=== PATIENT | female | born 1995 | race Caucasian/White ===

== ENCOUNTER → 2017-05-07 | Outpatient (REF) | payer OTHER ==
[2017-05-07 14:33] LABS: ALBUMIN 3.6 GM/DL (3.2-5.2); ALBUMIN/GLOBULIN RATIO 1.09 (1.00-1.93); ALKALINE PHOSPHATASE 119 U/L (45-117); ALT/SGPT 31 U/L (12-78); ANION GAP 6 MEQ/L (8-16); AST/SGOT 15 U/L (15-37); BILIRUBIN,TOTAL 0.3 MG/DL (0.2-1.0); BLOOD UREA NITROGEN 11 MG/DL (7-18); CALCIUM LEVEL 8.8 MG/DL (8.5-10.1); CARBON DIOXIDE LEVEL 29 MEQ/L (21-32); CHLORIDE LEVEL 103 MEQ/L (98-107); CHOLESTEROL LEVEL 159 MG/DL (<200); CREATININE FOR GFR 0.72 MG/DL (0.55-1.02); GLOMERULAR FILTRATION RATE > 60.0 (>60); GLUCOSE, FASTING 93 MG/DL (70-105); POTASSIUM SERUM 4.5 MEQ/L (3.5-5.1); SODIUM LEVEL 138 MEQ/L (136-145); TOTAL PROTEIN 6.9 GM/DL (6.4-8.2); TRIGLYCERIDES LEVEL 102 MG/DL (<150)
== END ==
LOC: M LAB REF 12:23
PROVIDERS: ATTEND Family Medicine Addiction Medicine
DX: D22.9 Melanocytic nevi, unspecified (principal)

== ENCOUNTER → 2017-05-21 | Outpatient (REF) | payer OTHER | LOC: M LAB REF 16:37 | PROVIDERS: ATTEND Surgery | DX: D48.5 Neoplasm of uncertain behavior of skin (principal) ==

== ENCOUNTER → 2017-09-01 | Outpatient (CLI) | payer OTHER ==
[2017-09-03 11:22] LABS: HEPATITIS B SURFACE ANTIGEN NEGATIVE (NEGATIVE)
[2017-09-03 11:49] LABS: HEPATITIS C VIRUS ABY INDEX 0.3 INDEX (<0.8)
[2017-09-03 11:51] LABS: HIV 1&2 SCREEN CENTAUR NEGATIVE (NEGATIVE)
[2017-09-03 11:52] LABS: HEPATITIS A ANTIBODY IGM NEGATIVE (NEGATIVE)
[2017-09-03 12:29] LABS: HEPATITIS B CORE ANTIBODY IGM NEGATIVE (NEGATIVE)
== END ==
LOC: M SMT 14:58
DX: Z11.3 Encounter for screening for infections with a predominantly sexual mode of transmission (principal)
CPT/HCPCS: 87340

== ENCOUNTER → 2017-09-01 | Outpatient (REF) | payer OTHER ==
[2017-09-01 20:12] LABS: CHLAMYDIA DNA AMPLIFICATION NEGATIVE (NEGATIVE); GC DNA AMPLIFICATION NEGATIVE (NEGATIVE)
== END ==
LOC: M LAB REF 17:32
DX: Z11.3 Encounter for screening for infections with a predominantly sexual mode of transmission (principal)

== ENCOUNTER → 2017-09-28 | Outpatient (REF) | payer OTHER | LOC: M LAB REF 09:46 | DX: J02.9 Acute pharyngitis, unspecified (principal) | CPT/HCPCS: 87070 ==

== ENCOUNTER 2018-12-29 19:44 | Emergency (ER) | payer OTHER, SELFPAY ==
[~2018-12-29] VITALS: Ht 162.6 cm; Wt 117.3 kg
[2018-12-29 21:10] LABS: BASO % 0.3 % (0.0-1.0); EOS # 0.1 10^3/uL (0.0-0.50); HEMATOCRIT 43.1 % (36.0-47.0); HEMOGLOBIN 13.4 g/dl (12.0-15.5); LYMPH % 29.1 % (24.0-44.0); MEAN CORPUSCULAR HGB CONC 31.1 g/dl (32.0-36.5); MEAN CORPUSCULAR VOLUME 83.5 fl (80.0-96.0); MONO # 0.8 10^3/uL (0.0-0.8); MONO % 10.9 % (0.0-5.0); NEUTROPHILS % 58.3 % (36.0-66.0); PLATELET COUNT, AUTOMATED 315 10^3/uL (150-450); RED BLOOD COUNT 5.16 10^6/uL (4.00-5.40); WHITE BLOOD COUNT 6.9 10^3/uL (4.0-10.0)
[2018-12-29 21:32] LABS: ALBUMIN 3.6 GM/DL (3.2-5.2); ALT/SGPT 36 U/L (12-78); BILIRUBIN,DIRECT < 0.1 MG/DL (0.0-0.2); BILIRUBIN,TOTAL < 0.1 MG/DL (0.2-1.0); BLOOD UREA NITROGEN 10 MG/DL (7-18); CALCIUM LEVEL 8.6 MG/DL (8.5-10.1); CARBON DIOXIDE LEVEL 27 MEQ/L (21-32); CHLORIDE LEVEL 108 MEQ/L (98-107); CREATININE FOR GFR 0.76 MG/DL (0.55-1.30); GLOMERULAR FILTRATION RATE > 60.0 (>60); GLUCOSE, FASTING 88 MG/DL (70-100); LIPASE 101 U/L (73-393); POTASSIUM SERUM 3.8 MEQ/L (3.5-5.1); SODIUM LEVEL 143 MEQ/L (136-145); TOTAL PROTEIN 7.4 GM/DL (6.4-8.2)
[2018-12-29] MEDS ORDERED: CIPR-249 PO (22:44)
[2018-12-29] MEDS ORDERED: ZOFR4TAB16 PO (22:44)
[2018-12-29] MEDS ORDERED: DICYCLOMINE 10 MG CAP PO ONE (22:45)
[2018-12-29] MEDS ORDERED: CIPROFLOXACIN 500 MG TAB PO ONE (22:45)
[2018-12-29] MEDS ORDERED: ONDANSETRON 4 MG ORAL DISINTEGRATING TAB (Q0162 PER 1MG) PO ONE (22:45)
[2018-12-29] MEDS ORDERED: DICY1CAP8 PO (22:46)
[2018-12-29 23:39] VITALS: BP 123/71
== END 2018-12-29 23:40 | disposition home or self-care (01) ==
LOC: M ED 19:44
DX: R19.7 Diarrhea, unspecified (principal); R11.0 Nausea; R10.84 Generalized abdominal pain
CPT/HCPCS: 36415; 80048; 80076; 81001; 83690; 84702; 85025; 87507; 99284; Q0162

== ENCOUNTER 2019-09-09 00:06 | Emergency (ER) | payer OTHER, SELFPAY ==
[~2019-09-09] VITALS: Ht 162.6 cm; Wt 122.7 kg
[~2019-09-09 00:06] MED LIST: CIPR-249 PO; DICY1CAP8 PO; ZOFR4TAB16 PO
[2019-09-09] MEDS ORDERED: BENA25CA4 PO (00:11)
[2019-09-09] MEDS ORDERED: IBUP80TA PO (00:11)
[2019-09-09] MEDS ORDERED: AMOX500C PO (00:11)
[2019-09-09] MEDS ORDERED: methylPREDNISolone INJ 125 MG/2 ML VIAL (J2930) IV ONE (04:30)
[2019-09-09] MEDS ORDERED: diphenhydrAMINE INJ 50MG/ML VIAL (J1200) IV ONE (04:30)
[2019-09-09] MEDS ORDERED: FAMOTIDINE INJ 20MG/2ML VIAL (S0028) IVP ONE (04:30)
[2019-09-09 05:42] LABS: HEMATOCRIT 38.1 % (36.0-47.0); HEMOGLOBIN 11.9 g/dl (12.0-15.5); MEAN CORPUSCULAR HEMOGLOBIN 25.3 pg (27.0-33.0); MEAN CORPUSCULAR HGB CONC 31.2 g/dl (32.0-36.5); MEAN CORPUSCULAR VOLUME 81.1 fl (80.0-96.0); PLATELET COUNT, AUTOMATED 351 10^3/uL (150-450); WHITE BLOOD COUNT 10.2 10^3/uL (4.0-10.0)
[2019-09-09 06:04] LABS: BLOOD UREA NITROGEN 11 MG/DL (7-18); CALCIUM LEVEL 8.4 MG/DL (8.5-10.1); CARBON DIOXIDE LEVEL 27 MEQ/L (21-32); CHLORIDE LEVEL 106 MEQ/L (98-107); CREATININE FOR GFR 0.86 MG/DL (0.55-1.30); GLOMERULAR FILTRATION RATE > 60.0 (>60); GLUCOSE, FASTING 98 MG/DL (70-100); POTASSIUM SERUM 4.2 MEQ/L (3.5-5.1); SODIUM LEVEL 140 MEQ/L (136-145)
[2019-09-09] MEDS ORDERED: PRED20TA PO (06:40)
[2019-09-09 07:15] VITALS: BP 151/89
== END 2019-09-09 07:25 | disposition home or self-care (01) ==
LOC: M ED 00:06
DX: R21 Rash and other nonspecific skin eruption (principal); T78.49XA Other allergy, initial encounter; X58.XXXA Exposure to other specified factors, initial encounter; Y92.89 Other specified places as the place of occurrence of the external cause
CPT/HCPCS: 80048; 85027; 94760; 96374; 96375; 99284; J1200; J2930

== ENCOUNTER → 2020-04-27 | Outpatient (REF) | payer OTHER ==
[~2020-04-27] MED LIST changes: +AMOX500C PO; +BENA25CA4 PO; +IBUP80TA PO; +PRED20TA PO
== END ==
LOC: M LAB REF 15:52
PROVIDERS: ATTEND Physician Assistant
DX: J02.9 Acute pharyngitis, unspecified (principal)

== ENCOUNTER → 2020-05-08 | Outpatient (REF) | payer OTHER ==
[2020-05-08 17:02] LABS: BASO % 0.4 % (0.0-1.0); EOS # 0.5 10^3/uL (0.0-0.5); EOS % 5.1 % (0.0-3.0); HEMOGLOBIN 12.9 g/dl (12.0-15.5); LYMPH # 2.6 10^3/uL (1.5-5.0); LYMPH % 28.9 % (24.0-44.0); MEAN CORPUSCULAR HEMOGLOBIN 24.8 pg (27.0-33.0); MEAN CORPUSCULAR VOLUME 82.5 fl (80.0-96.0); MONO # 0.6 10^3/uL (0.0-0.8); MONO % 6.3 % (0.0-5.0); NEUTROPHILS # 5.3 10^3/uL (1.5-8.5); NEUTROPHILS % 58.6 % (36.0-66.0); PLATELET COUNT, AUTOMATED 380 10^3/uL (150-450); RED BLOOD COUNT 5.21 10^6/uL (4.00-5.40)
[2020-05-08 17:21] LABS: HEMOGLOBIN A1c 5.7 %
[2020-05-08 17:27] LABS: ALBUMIN 3.8 GM/DL (3.2-5.2); ALT/SGPT 20 U/L (12-78); BILIRUBIN,TOTAL 0.2 MG/DL (0.2-1.0); BLOOD UREA NITROGEN 10 MG/DL (7-18); CALCIUM LEVEL 8.8 MG/DL (8.5-10.1); CARBON DIOXIDE LEVEL 25 MEQ/L (21-32); CHLORIDE LEVEL 106 MEQ/L (98-107); CHOLESTEROL LEVEL 166 MG/DL (<200); CREATININE FOR GFR 0.75 MG/DL (0.55-1.30); GLOMERULAR FILTRATION RATE > 60.0 (>60); GLUCOSE, FASTING 95 MG/DL (70-100); HDL CHOLESTEROL 40 MG/DL (>40); LDL CHOLESTEROL 98 MG/DL (<100); NON-HDL-C 126 MG/DL; POTASSIUM SERUM 4.2 MEQ/L (3.5-5.1); SODIUM LEVEL 138 MEQ/L (136-145); TOTAL PROTEIN 7.3 GM/DL (6.4-8.2); TRIGLYCERIDES LEVEL 139 MG/DL (<150)
== END ==
LOC: M LAB REF 16:06
PROVIDERS: ATTEND Physician Assistant
DX: R53.83 Other fatigue (principal); N92.0 Excessive and frequent menstruation with regular cycle

== ENCOUNTER → 2020-08-29 | Outpatient (REF) | payer OTHER ==
[2020-08-29 14:26] LABS: MEAN CORPUSCULAR HEMOGLOBIN 25.1 pg (27.0-33.0); MEAN CORPUSCULAR HGB CONC 30.8 g/dl (32.0-36.5); MEAN CORPUSCULAR VOLUME 81.4 fl (80.0-96.0); PLATELET COUNT, AUTOMATED 276 10^3/uL (150-450); RED BLOOD COUNT 4.79 10^6/uL (4.00-5.40); WHITE BLOOD COUNT 10.9 10^3/uL (4.0-10.0)
[2020-08-29 14:50] LABS: GLUCOSE CHALLENGE TEST 1 HOUR 101 MG/DL (LESS THAN 140)
[2020-08-29 15:43] LABS: HEPATITIS C VIRUS ABY INDEX < 0.0 INDEX (<0.8)
[2020-08-29 15:44] LABS: HIV 1&2 SCREEN CENTAUR NEGATIVE (NEGATIVE)
[2020-08-29 16:05] LABS: CHLAMYDIA DNA AMPLIFICATION NEGATIVE (NEGATIVE); GC DNA AMPLIFICATION NEGATIVE (NEGATIVE)
== END ==
LOC: M PLALAB 09:03
PROVIDERS: ATTEND Advanced Practice Midwife
DX: O99.211 Obesity complicating pregnancy, first trimester (principal)

== ENCOUNTER → 2020-09-12 | Outpatient (REF) | payer OTHER | LOC: M PLALAB 12:06 | PROVIDERS: ATTEND Obstetrics & Gynecology | DX: Z34.91 Encounter for supervision of normal pregnancy, unspecified, first trimester (principal); Z3A.13 13 weeks gestation of pregnancy ==

== ENCOUNTER → 2020-09-14 | Outpatient (REF) | payer OTHER | LOC: M SFHCWAGY 13:23 | PROVIDERS: ATTEND Obstetrics & Gynecology | DX: Z3A.13 13 weeks gestation of pregnancy (principal) ==

== ENCOUNTER → 2020-10-11 | Outpatient (REF) | payer OTHER | LOC: M PLALAB 11:26 | PROVIDERS: ATTEND Obstetrics & Gynecology | DX: Z3A.17 17 weeks gestation of pregnancy (principal) ==

== ENCOUNTER → 2020-10-12 | Outpatient (REF) | payer OTHER | LOC: M SFHCWAGY 13:38 | PROVIDERS: ATTEND Obstetrics & Gynecology | DX: Z3A.17 17 weeks gestation of pregnancy (principal) ==

== ENCOUNTER → 2020-10-18 | Outpatient (CLI) | payer OTHER ==
--- NOTE | 2020-10-18 15:20 | REP ---
INDICATION: ANATOMY. COMPARISON: None. TECHNIQUE: Multiple sonographic images of the gravid uterus. FINDINGS: There is a single intrauterine gestation in a breech presentation. The placenta is anterior with grade 0 maturity. There is no previa. The umbilical cord inserts centrally onto the placenta. There is a three-vessel cord. heart rate is 134 beats per minute. Subjectively the amniotic fluid volume is normal. The composite ultrasound gestational age is 18 weeks 0 days with an CHEKO of 03/21/2021. The LMP is unknown. weight is 207 g/0 lb, 7 oz. This is the 18th percentile for 18 weeks 2 days. The following anatomic structures are satisfactorily demonstrated and are unremarkable: Cranium, cavum septum pellucidum, falx, cerebral ventricles, choroid plexus, cerebellum, cisterna magna, nuchal fold, facial profile, orbits, lungs, cardiac rhythm, cardiac right left ventricular outflow tracts, diaphragm, stomach, abdominal wall, right left kidneys, bladder, right and left upper extremities, right left lower extremities and 3 vessel cord. The following anatomic structures are suboptimally demonstrated: upper lip, four-chamber view of the heart and spine. A follow-up study dedicated to these structures and might be considered. Additionally, an echogenic focus is identified in the cardiac left ventricle. This is nonspecific but is usually artifact from the chorda tendineae. The examination is technically difficult because of early gestational age and maternal body habitus. IMPRESSION: dating and anatomy as discussed above. <Electronically signed by Carl Wiggins > 10/18/20 [id number]
== END ==
LOC: M WHC 12:40
PROVIDERS: ATTEND Obstetrics & Gynecology
DX: Z34.02 Encounter for supervision of normal first pregnancy, second trimester (principal); Z3A.18 18 weeks gestation of pregnancy

== ENCOUNTER → 2020-11-16 | Outpatient (REF) | payer OTHER ==
[2020-11-16 16:07] LABS: ALT/SGPT 12 U/L (12-78); BILIRUBIN,TOTAL < 0.1 MG/DL (0.2-1.0); CREATININE FOR GFR 0.53 MG/DL (0.55-1.30); GLOMERULAR FILTRATION RATE > 60.0 (>60); LDH LACTATE DEHYDROGENASE 148 U/L (84-246); URIC ACID 3.7 MG/DL (2.6-6.0)
[2020-11-16 19:48] LABS: TOTAL PROTEIN,RANDOM URINE 16.9 MG/DL (0.0-12.0)
== END ==
LOC: M PLALAB 12:33
PROVIDERS: ATTEND Obstetrics & Gynecology
DX: O16.9 Unspecified maternal hypertension, unspecified trimester (principal)

== ENCOUNTER 2020-11-27 19:03 | Outpatient (CLI) | payer OTHER ==
[~2020-11-27] VITALS: Ht 160 cm; Wt 123.6 kg
[2020-11-27] MEDS ORDERED: PREN29CH2 PO (19:18)
[2020-11-27 19:32] VITALS: BP 124/80
[2020-11-27] MEDS ORDERED: PERCOCET 5MG/325MG TAB PO ONE (20:10)
[2020-11-27 20:14] LABS: APPEARANCE, URINE HAZY (CLEAR); BACTERIA, URINE AUTO 1+ (NEGATIVE); BILIRUBIN, URINE AUTO NEGATIVE (NEGATIVE); BLOOD, URINE BLOOD NEGATIVE (NEGATIVE); CALCIUM OXALATE CRYSTALS MODERATE; COLOR, URINE YELLOW (YELLOW); GLUCOSE, URINE (UA) AUTO NEGATIVE (NEGATIVE); KETONE, URINE AUTO NEGATIVE (NEGATIVE); LEUKOCYTE ESTERASE, URINE AUTO NEGATIVE (NEGATIVE); MUCUS, URINE SMALL (NEGATIVE); NITRITE, URINE AUTO NEGATIVE (NEGATIVE); PROTEIN, URINE AUTO 1+ mg/dL (NEGATIVE); RBC, URINE AUTO 49 /HPF (0-3); SQUAMOUS EPITHELIAL CELL UR AU 6 /HPF (0-6); UROBILINOGEN, URINE AUTO 0.2 mg/dL (0.0-2.0); WBC, URINE AUTO 3 /HPF (0-3)
[2020-11-27 20:18] LABS: HEMATOCRIT 37.7 % (36.0-47.0); MEAN CORPUSCULAR HEMOGLOBIN 26.5 pg (27.0-33.0); MEAN CORPUSCULAR HGB CONC 31.8 g/dl (32.0-36.5); MEAN CORPUSCULAR VOLUME 83.2 fl (80.0-96.0); PLATELET COUNT, AUTOMATED 292 10^3/uL (150-450); RED BLOOD COUNT 4.53 10^6/uL (4.00-5.40); WHITE BLOOD COUNT 11.3 10^3/uL (4.0-10.0)
[2020-11-27] MEDS ORDERED: MORPHINE 4 MG/ML 1ML VIAL/SYRINGE (J2270) IV PRN (20:20)
[2020-11-27] MEDS ORDERED: PERCOCET 5MG/325MG TAB PO PRN (20:20)
[2020-11-27] MEDS ORDERED: LACTATED RINGER'S 1000 ML IV ONE (20:20)
[2020-11-27] MEDS ORDERED: ONDANSETRON 4MG/2ML VIAL IV PRN (20:30)
--- NOTE | 2020-11-27 20:40 | IPNPDOC ---
Text Note Date of Service The patient was seen on 11/27/20. NOTE Subjective: Ramesh is a 25-year-old female who is a at 24 weeks gestation with an CHEKO of 03/19/21 based off of her first trimester ultrasound. She initiated care in her first trimester at [facility]. Her has been complicated by CHTN, which she is not taking any medication for and morbid obesity. She presents to L&D with complaints of left sided pain that radiates to her back that started today and has gotten worse. Reports pain to be 5/10 and constant, deep, sharp and dull. She denies vaginal bleeding, contractions, or leaking of fluid. She reports active movement. She reports nausea and vomiting started after being in the department. Reports she is only urinating in very small amounts. MHx: CHTN, morbid obesity SHx: oral surgery FHx: bipolar, anxiety and depression Social history: denies being a smoker, denies alcohol or drug abuse. Denies history of STD. Objective: VS, labs, and ultrasound: see below. Ultrasound with minimal results per tech due to body habitus. Difficult to get images. FHR: 130-150 [place]: no contractions General: Alert and oriented. Appear to be uncomfortable (grimacing) Respiratory: regular rate and rhythm. No use of accessory muscles Abdomen: soft and not tender to touch. Musculoskeletal: +CVA tenderness left side. Assessment: IUP at 24 weeks, kidney stones Plan: Labs: UA, CMP, CBC ordered stat. Saline lock placed and LR 1 liter ordered to bolus now followed by 125 cc/hr Pain medication ordered: Percocet and morphine Renal ultrasound ordered Flomax ordered Zofran ordered. FHR Q4 hour. Continue to monitor urinary output. Continue to monitor and if pain improves tonight she can go home in the morning. VS,Fishbone, I+O VS, Fishbone, I+O Laboratory Tests 11/27/20 20:05 Vital Signs Date Time Temp Pulse Resp B/P (MAP) Pulse Ox O2 Delivery O2 Flow Rate FiO2 11/27/20 20:21 18 11/27/20 19:32 98.6 76 124/80 (95) 99 Room Air Item Value Date Time White Blood Count 11.3 10^3/uL H 11/27/202004 Red Blood Count 4.53 10^6/uL 11/27/202004 Hemoglobin 12.0 g/dl 11/27/202004 Hematocrit 37.7 % 11/27/202004 Mean Corpuscular Volume 83.2 fl 11/27/202004 Mean Corpuscular Hemoglobin 26.5 pg L 11/27/202004 Mean Corpuscular Hemoglobin Concent 31.8 g/dl L 11/27/202004 Red Cell Distribution Width 15.7 % H 11/27/202004 Platelet Count 292 10^3/uL 11/27/202004 Item Value Date Time Sodium Level 140 MEQ/L 11/27/202004 Potassium Level 3.9 MEQ/L 11/27/202004 Chloride Level 107 MEQ/L 11/27/202004 Carbon Dioxide Level 23 MEQ/L 11/27/202004 Anion Gap 10 MEQ/L 11/27/202004 Blood Urea Nitrogen 8 MG/DL 11/27/202004 Creatinine 0.58 MG/DL 11/27/202004 Glomerular Filtration Rate > 60.0 11/27/202004 Fasting Glucose 89 MG/DL 11/27/202004 Calcium Level 9.3 MG/DL 11/27/202004 Total Bilirubin 0.2 MG/DL 11/27/202004 Aspartate Amino Transf (AST/SGOT) 9 U/L 11/27/202004 Alanine Aminotransferase (ALT/SGPT) 12 U/L 11/27/202004 Alkaline Phosphatase 101 U/L 11/27/202004 Total Protein 5.8 GM/DL L 11/27/202004 Albumin 2.7 GM/DL L 11/27/202004 Albumin/Globulin Ratio 0.9 L 11/27/202004 Item Value Date Time Urine Color YELLOW 11/27/201955 Urine Appearance HAZY 11/27/201955 Urine Specific [place] 1.020 11/27/201955 Urine pH 6.0 UNITS 11/27/201955 Urine Protein 1+ mg/dL H 11/27/201955 Urine Glucose (Auto)(UA) NEGATIVE mg/dL 11/27/201955 Urine Ketones (Auto) NEGATIVE mg/dL 11/27/201955 Urine Blood NEGATIVE 11/27/201955 Urine Nitrite NEGATIVE 11/27/201955 Urine Bilirubin NEGATIVE 11/27/201955 Urine Urobilinogen 0.2 mg/dL 11/27/201955 Urine Leukocyte Esterase (Auto) NEGATIVE 11/27/201955 Urine WBC (Auto) 3 /HPF 11/27/201955 Urine RBC (Auto) 49 /HPF H 11/27/201955 Urine Hyaline Casts (Auto) 0 /LPF 11/27/201955 Urine Bacteria (Auto) 1+ H 11/27/201955 Urine Squamous Epithelial Cells 6 /HPF 11/27/201955 Urine Calcium Oxalate Cryst (Auto) MODERATE 11/27/201955 Urine Mucus (Auto) SMALL 11/27/201955 NAME: RAMESH GOMEZ DATE OF : 1995 BUSINESS NUMBER: [id number] AGE: 25 SEX: F REPORT #: [id number] ROOM: [facility] TECHNOLOGIST: [facility] DOCTOR: XOCHITL RODRIGUEZ CNM Ordered for Date&Time: 11/27/202015 cc: [~ rep ct ivnm] Service Date&Time: 11/27/202119 EXAMINATION REQUESTED: RENAL US REASON FOR PATIENT VISIT: CRAMPING REASON FOR EXAMINATION: left sided flank pain PROCEDURE INFORMATION: Exam: US Retroperitoneal Limited, Kidneys Exam date and time: 11/27/2020 9:20 PM Age: 25 years old Clinical indication: Abdominal pain; Flank; Left; ; Additional info: Left sided flank pain TECHNIQUE: Imaging protocol: Real-time ultrasound of the retroperitoneum with image documentation. Examination was focused on the kidneys. COMPARISON: No relevant prior studies available. FINDINGS: Right kidney: 10.4 cm in length. No stones. No hydronephrosis. Left kidney: 13.3 cm in length. No stones. No hydronephrosis. IMPRESSION: No acute sonographic findings. Electronically signed by: Polo Fan On 11/27/2020 22:22:50 PM XOCHITL RODRIGUEZ CNM November 27, 2020 20:40
[2020-11-27 20:47] LABS: ALBUMIN 2.7 GM/DL (3.2-5.2); ALT/SGPT 12 U/L (12-78); BILIRUBIN,TOTAL 0.2 MG/DL (0.2-1.0); BLOOD UREA NITROGEN 8 MG/DL (7-18); CALCIUM LEVEL 9.3 MG/DL (8.5-10.1); CARBON DIOXIDE LEVEL 23 MEQ/L (21-32); CHLORIDE LEVEL 107 MEQ/L (98-107); CREATININE FOR GFR 0.58 MG/DL (0.55-1.30); GLOMERULAR FILTRATION RATE > 60.0 (>60); GLUCOSE, FASTING 89 MG/DL (70-100); POTASSIUM SERUM 3.9 MEQ/L (3.5-5.1); SODIUM LEVEL 140 MEQ/L (136-145); TOTAL PROTEIN 5.8 GM/DL (6.4-8.2)
[2020-11-27] MEDS ORDERED: TAMSULOSIN 0.4 MG CAP PO SCH (21:00)
[2020-11-27 21:36] VITALS: BP 132/60
--- NOTE | 2020-11-27 22:23 | REPVR ---
PROCEDURE INFORMATION: Exam: US Retroperitoneal Limited, Kidneys Exam date and time: 11/27/2020 9:20 PM Age: 25 years old Clinical indication: Abdominal pain; Flank; Left; ; Additional info: Left sided flank pain TECHNIQUE: Imaging protocol: Real-time ultrasound of the retroperitoneum with image documentation. Examination was focused on the kidneys. COMPARISON: No relevant prior studies available. FINDINGS: Right kidney: 10.4 cm in length. No stones. No hydronephrosis. Left kidney: 13.3 cm in length. No stones. No hydronephrosis. IMPRESSION: No acute sonographic findings. Electronically signed by: Polo Fan On 11/27/2020 22:22:50 PM
[2020-11-27 22:29] VITALS: BP 107/68
[2020-11-27] MEDS: LR 1,000 ML IV SCH (22:32)
[2020-11-28 00:12] VITALS: BP 128/77
[2020-11-28 01:51] VITALS: BP 114/53
[2020-11-28 04:13] VITALS: BP 139/85
[2020-11-28] MEDS: LR 1,000 ML IV SCH (05:46)
[2020-11-28 06:04] VITALS: BP 123/70
== END 2020-11-28 11:15 | disposition home or self-care (01) ==
LOC: M LDO 19:03
PROVIDERS: ATTEND Advanced Practice Midwife
DX: O26.892 Other specified pregnancy related conditions, second trimester (principal); R10.9 Unspecified abdominal pain
CPT/HCPCS: 36415; 76775; 80053; 81001; 85027; 96374; 96375; J2270; J2405

== ENCOUNTER 2020-11-30 13:33 | Outpatient (CLI) | payer OTHER ==
[~2020-11-30] VITALS: Ht 160 cm; Wt 124.9 kg
[~2020-11-30 13:33] MED LIST changes: -ACET325C5 PO
[2020-11-30 13:56] VITALS: BP 146/72
[2020-11-30] MEDS ORDERED: ACET325C5 PO (14:03)
[2020-11-30 14:14] VITALS: BP 141/84
--- NOTE | 2020-11-30 15:14 | REP ---
INDICATION: IUGR, oligohydramnios 24 weeks, need cord dopplers only. COMPARISON: 11/30/2020. TECHNIQUE: Real-time sonographic evaluation of gravid uterus performed. FINDINGS: There is a single living intrauterine gestation. The estimated gestational age is reportedly 24 weeks 3 days, EDC 03/19/2021. position is breech. Placenta is on the left, grade 1 with no previa. heart rate 139 beats per minute. Subjectively the amniotic fluid is decreased. DEVAN is 6.3, normal range 9.8-22.0. Biophysical profile score 8/8. SD ratio umbilical artery 2.55, normal 2.38-4.94. RI 0.61, normal 0.59-0.82. Cervix is closed and measures 4.7 centimeters in length. IMPRESSION: [id number] decreased amniotic fluid volume. Biophysical profile score 8/8. <Electronically signed by Carl Le > 11/30/20 1843
[2020-11-30 15:17] VITALS: BP 149/90
[2020-11-30] MEDS ORDERED: BETAMETHASONE SOLUSPAN 6MG/ML 5ML VIAL (J0702 PER 3MG) IM ONE (16:05)
[2020-11-30 16:42] VITALS: BP 171/82
[2020-11-30 16:45] VITALS: BP 136/67
--- NOTE | 2020-11-30 17:20 | IPNPDOC ---
Text Note Date of Service The patient was seen on 11/30/20. NOTE Triage note 25 yo at 24 3/7 weeks by 9 week ultrasound (EDC=03/19/2021) presents from the office after an ultrasound showed oligohydramnios (DEVAN=2.8) and well as intrauterine growth restriction. She has no symptoms today at all. No pain. O: YO=268/72 NAD Abd: NT, gravid fundal height =20 cm FHT: category one ext: NT Ultrasound: CNJ=126 grams (<3%), Normal S/D cord ratio A/P 25 yo G1 at 24 3/7 weeks with IUGR,Oligohydramnios Start BMZ series today; return tomorrow for repeat dose Check TORCH labs as cause follow BP for possible preeclampsia refer to PNC at [facility] due to possibility of early delivery Arrange to have NIPT genetic screen done Weekly cord doppler/DEVAN/BPP, and weekly office visits VS,Fishbone, I+O VS, Fishbone, I+O Vital Signs Date Time Temp Pulse Resp B/P (MAP) Pulse Ox O2 Delivery O2 Flow Rate FiO2 11/30/20 16:45 98.0 20 20 136/67 (90) VICKIE JAIN MD November 30, 2020 17:19
[2020-12-02 20:13] LABS: CYTOMEGALOVIRUS IgG ANTIBODY <0.60 U/mL (0.00-0.59); CYTOMEGALOVIRUS IgM ANTIBODY <30.0 AU/mL (0.0-29.9); HSV IgM TYPES 1&2 <0.91 Ratio (0.00-0.90); TOXOPLASMA IgG ABY <3.0 IU/mL (0.0-7.1)
== END 2020-11-30 16:58 | disposition home or self-care (01) ==
LOC: M LDO 13:33
PROVIDERS: ATTEND Specialist
DX: O41.02X0 Oligohydramnios, second trimester, not applicable or unspecified (principal); Z3A.24 24 weeks gestation of pregnancy; O36.5920 Maternal care for other known or suspected poor fetal growth, second trimester, not applicable or unspecified; O99.212 Obesity complicating pregnancy, second trimester; E66.9 Obesity, unspecified; Z88.1 Allergy status to other antibiotic agents
CPT/HCPCS: 36415; 76815; 76820; 86644; 86645; 86694; 86777; 86778; 96372; J0702

== ENCOUNTER → 2020-11-30 | Outpatient (CLI) | payer OTHER ==
[~2020-11-30] MED LIST changes: +ACET325C5 PO; +PREN29CH2 PO
--- NOTE | 2020-11-30 13:58 | REP ---
INDICATION: F/U ANATOMY. COMPARISON: 10/18/2020. TECHNIQUE: Real-time sonographic evaluation of the gravid uterus performed. FINDINGS: Estimated gestational age is24 weeks 3 days, EDC 03/19/2021. Today's measurements indicate less than expected growth. Presentation: Breech Placenta anterior, grade 2, without evidence of placenta previa. heart rate is recorded at 152 beats per minute. Amniotic fluid is subjectively oligohydramnios. DEVAN 2.8, normal range 9.8-22.0. Biophysical profile score 8/8. Closed cervical length is measured at 4.0 cm. Biometry chart: BPD: 55 mm, 22 weeks 5 days, 5 less than 5th percentile. HC: 215 mm, 23 weeks 84 days, 24th percentile AC: 173 mm, 22 weeks 2 days, less than 5th percentile Femur length: 39 mm, 22 weeks 3 days, less than 5th percentile HC to AC ratio: 1.24, normal range 1.02-1.21. Estimated weight: 08/01/2006g, less than 3rd percentile. anatomy: Cranium: Grossly normal Lateral Ventricles/Choroid Plexus: Grossly normal Posterior Fossa/Cerebellum: Grossly normal Nose/lips/profile: Not well seen due to position. Four chamber heart: Not well seen due to position. Previously seen. Right ventricular outflow tract: Not well seen due to position. Previously seen. Left ventricular outflow tract: Not well seen due to position. Previously seen. Left-sided stomach: Grossly normal Kidneys: Grossly normal Bladder: Grossly normal Cord Insertion: Not well seen due to position. Previously seen. 3 vessel cord: Grossly normal Spine: Not well seen due to position. IMPRESSION: Viable single intrauterine gestation as above. Oligohydramnios. Less than expected growth, estimated weight is less than 3rd percentile. Biophysical profile score 8/8. Limited evaluation of anatomy. <Electronically signed by Carl Le > 11/30/20 [id number]
== END ==
LOC: M WHC 12:19
PROVIDERS: ATTEND Obstetrics & Gynecology
DX: O99.212 Obesity complicating pregnancy, second trimester (principal); O41.02X1 Oligohydramnios, second trimester, fetus 1; Z3A.24 24 weeks gestation of pregnancy

== ENCOUNTER 2020-12-01 16:16 | Outpatient (CLI) | payer OTHER ==
[~2020-12-01] VITALS: Ht 160 cm; Wt 124.9 kg
[~2020-12-01 16:16] MED LIST changes: +ACET325C5 PO
[2020-12-01 16:40] VITALS: BP 132/63
[2020-12-01] MEDS ORDERED: BETAMETHASONE SOLUSPAN 6MG/ML 5ML VIAL (J0702 PER 3MG) IM ONE (17:00)
--- NOTE | 2020-12-01 17:18 | IPNPDOC ---
Text Note Date of Service The patient was seen on 12/01/20. NOTE Outpatient 25yo G1 CHEKO 03/19/2021. Presents @ 24w4d for beta #2. History is significant for chronic HTN, IUGR and oligohydramnios Cat I tracing today. Normotensive Discharged home. Keep appt next week. Reviewed s/s to report, symptoms of elevated blood pressure, decreased movement. VS,Fishbone, I+O VS, Fishbone, I+O Vital Signs Date Time Temp Pulse Resp B/P (MAP) Pulse Ox O2 Delivery O2 Flow Rate FiO2 12/01/20 16:40 99.2 83 18 132/63 (86) Alis Whalen CNM December 01, 2020 17:18
== END 2020-12-01 17:12 | disposition home or self-care (01) ==
LOC: M LDO 16:16
PROVIDERS: ATTEND Advanced Practice Midwife
DX: O41.02X0 Oligohydramnios, second trimester, not applicable or unspecified (principal); Z3A.24 24 weeks gestation of pregnancy; O10.012 Pre-existing essential hypertension complicating pregnancy, second trimester; O36.8120 Decreased fetal movements, second trimester, not applicable or unspecified; Z88.1 Allergy status to other antibiotic agents
CPT/HCPCS: 96372; J0702

== ENCOUNTER → 2020-12-08 | Outpatient (CLI) | payer OTHER | LOC: M PLALAB 15:16 | PROVIDERS: ATTEND Advanced Practice Midwife | DX: O28.3 Abnormal ultrasonic finding on antenatal screening of mother (principal); O09.892 Supervision of other high risk pregnancies, second trimester ==

== ENCOUNTER → 2020-12-13 | Outpatient (CLI) | payer OTHER ==
[~2020-12-13] MED LIST changes: +LABE200T32 PO
--- NOTE | 2020-12-14 07:44 | REP ---
INDICATION: BPP/CORD DOPPLERS COMPARISON: 11/30/2020 TECHNIQUE: Transabdominal obstetrical ultrasound with color Doppler evaluation. FINDINGS: Examination demonstrates a single live intrauterine in cephalic presentation. motion is identified by technologist. Heterogeneous placenta is noted anterior/left lateral and grade 1 without evidence for placenta previa or abruption. Amniotic fluid volume is normal. Cervix measures 3.3 cm in length and appears closed.. Gestational age by 1st U/S 26 weeks 2 days with CHEKO 03/19/2021. DEVAN: 7.1 cm (9.6-22.4) Biophysical profile score: 8/8 Umbilical artery SD ratio: 2.91, 2.74 (2.22-4.61) IMPRESSION: 1. Single live intrauterine in cephalic presentation. 2. Biophysical profile score is normal. 3. Amniotic fluid volume is below normal range suggesting oligohydramnios. <Electronically signed by Michel Geiger > 12/14/20 [id number]
== END ==
LOC: M WHC 10:29
PROVIDERS: ATTEND Advanced Practice Midwife
DX: Z36.4 Encounter for antenatal screening for fetal growth retardation (principal); O36.5920 Maternal care for other known or suspected poor fetal growth, second trimester, not applicable or unspecified; Z3A.26 26 weeks gestation of pregnancy

== ENCOUNTER 2020-12-14 10:44 | Outpatient (CLI) | payer OTHER ==
[~2020-12-14] VITALS: Ht 160 cm; Wt 124.8 kg
[~2020-12-14 10:44] MED LIST changes: -LABE200T32 PO
[2020-12-14 11:07] VITALS: BP 169/111
[2020-12-14 11:19] VITALS: BP 156/95
[2020-12-14] MEDS ORDERED: NIFEdipine 10 MG CAP PO ONE (11:20)
[2020-12-14] MEDS ORDERED: ACETAMINOPHEN 500 MG TAB PO PRN (11:20)
[2020-12-14 11:55] LABS: HEMATOCRIT 38.2 % (36.0-47.0); HEMOGLOBIN 11.8 g/dl (12.0-15.5); MEAN CORPUSCULAR HEMOGLOBIN 26.3 pg (27.0-33.0); MEAN CORPUSCULAR HGB CONC 30.9 g/dl (32.0-36.5); MEAN CORPUSCULAR VOLUME 85.3 fl (80.0-96.0); PLATELET COUNT, AUTOMATED 309 10^3/uL (150-450); RED BLOOD COUNT 4.48 10^6/uL (4.00-5.40); WHITE BLOOD COUNT 13.6 10^3/uL (4.0-10.0)
[2020-12-14 12:29] VITALS: BP 140/87
[2020-12-14 12:29] LABS: ALBUMIN 2.7 GM/DL (3.2-5.2); ALT/SGPT 14 U/L (12-78); BILIRUBIN,TOTAL 0.2 MG/DL (0.2-1.0); BLOOD UREA NITROGEN 12 MG/DL (7-18); CARBON DIOXIDE LEVEL 25 MEQ/L (21-32); CHLORIDE LEVEL 106 MEQ/L (98-107); CREATININE FOR GFR 0.55 MG/DL (0.55-1.30); GLOMERULAR FILTRATION RATE > 60.0 (>60); GLUCOSE, FASTING 98 MG/DL (70-100); POTASSIUM SERUM 4.2 MEQ/L (3.5-5.1); SODIUM LEVEL 138 MEQ/L (136-145); TOTAL PROTEIN 6.3 GM/DL (6.4-8.2)
--- NOTE | 2020-12-14 12:57 | REP ---
INDICATION: iugr chtn oligohydramnios BPP and GROWTH. COMPARISON: Multiple TECHNIQUE: Transabdominal FINDINGS: Multiple ultrasonographic images of the gravid uterus shows a single living intrauterine gestation in the cephalic presentation. Doppler interrogation of the heart shows a heart rate of 147 beats per minute. The subjective amniotic fluid volume is is within normal limits. The calculated amniotic fluid index is 10.0 within expected range 9.6 to 22.4. Doppler interrogation of the umbilical artery shows an AB ratio of 2.41. This is within the normal range. The cervix measures 3 cm in length and is closed. biophysical profile score is 2 for breathing 2 for movement 2 for tone and 2 for amniotic fluid volume giving a sum total of 8/8. BPD: 6.6 cm 26 weeks 4 days HC: 23.6 cm 25 weeks 4 days AC: 19.9 cm 24 weeks 4 days FL: 4.5 cm 24 weeks 6 days The estimated weight is 746 g which is at the 28th percentile for a 26 week 3 day gestational age. Four-chamber heart, upper lip, and spine remain suboptimally visualized although reported as previously seen my review of those images from those prior exams in my view remains suboptimal. IMPRESSION: Single living intrauterine gestation as described above with an estimated gestational age of 23 weeks 1 day via composite criteria and an estimated date of delivery of 04/11/2021 based on today's exam. No anomalies were detected, however, upper lip, four-chamber heart view, and spine remain suboptimally visualized. Additional follow-up is warranted. <Electronically signed by Frank Anderson > 12/14/20 [id number]
[2020-12-14 13:17] LABS: CREATININE,RANDOM URINE 75.6 MG/DL; TOTAL PROTEIN,RANDOM URINE 24.8 MG/DL (0.0-12.0)
[2020-12-14] MEDS ORDERED: LABE200T32 PO (13:50)
--- NOTE | 2020-12-14 14:35 | IPNPDOC ---
Text Note Date of Service The patient was seen on 12/14/20. NOTE Triage Note Wendy is a 25yo with SIUP at 26w3d presenting to L&D triage from clinic for evaluation of her bp's and [place]. She notes not having hydrated well so far today. BP in clinic was 160/100 then 158/90. No regular/painful ctx. Good movement. No VB or LOF. No vision changes or RUQ pain. Her PMhx/PNC is significant for: CHTN with baseline urine prot:creat 0.16. Morbid obesity, starting BMI 48 with normal early 1hr glucola. Recent dx of IUGR and oligohydramnios on 11/30 with referral to PNC (appt 12/20) and increased monitoring with weekly BPPs. She is steroid complete as of 12/01/20. Vitals: initial bp severe range but mild range after receiving a PO dose of 10mg nifedipine General: WDWN, resting comfortably in bed Abdomen: soft, obese, gravid Labs: H/H 11.8/38.2, plt 309 creat 0.55, LFTs wnl urine prot:creat 0.328. (Starting urine prot:creat was 0.16 so this is a doubling). Imaging: BPP and GS today- BPP 8/8, growth 28%ile (but note made that upper lip, heart and spine view remain suboptimal). DEVAN 10cm. Assessment: Wendy is a 25yo with SIUP at 26w3d with new diagnosis of CHTN with super- imposed pre-eclampsia withOUT severe features based on doubling of urine prot:creat to 0.328 from baseline 0.16. Headache was effectively treated in tr iage with tylenol and she endorsed complete resolution. Mild range bp's after PO nifedipine. Reassuring status (11/30 u/s diagnosed IUGR with oligo but today EFW 28%ile with 10cm DEVAN). Beta complete as of 12/01. Plan: -safe for discharge home with bp check in clinic tomorrow -discussed with patient results of labs, imaging, and new dx of pre-eclampsia. discussed IOL by 37wk. Keep 20 December appt at [facility]. Weekly BPPs. -will initiate PO labetalol 200mg BID, patient instructed to take first dose be fore bed tonight -discussed return precautions at length Anna Schmitt MD VS,Hetal, I+O VS, Hetal I+O Laboratory Tests 12/14/20 11:17 Vital Signs Date Time Temp Pulse Resp B/P (MAP) Pulse Ox O2 Delivery O2 Flow Rate FiO2 12/14/20 12:29 108 140/87 (104) 12/14/20 11:07 98.2 18 Anna Schmitt MD December 14, 2020 14:35
== END 2020-12-14 14:00 | disposition home or self-care (01) ==
LOC: M LDO 10:44
PROVIDERS: ATTEND Obstetrics & Gynecology
DX: O11.2 Pre-existing hypertension with pre-eclampsia, second trimester (principal); Z3A.26 26 weeks gestation of pregnancy; O99.212 Obesity complicating pregnancy, second trimester; E66.9 Obesity, unspecified; Z68.42 Body mass index [BMI] 45.0-49.9, adult; O36.5920 Maternal care for other known or suspected poor fetal growth, second trimester, not applicable or unspecified; O41.02X0 Oligohydramnios, second trimester, not applicable or unspecified

== ENCOUNTER → 2020-12-19 | Outpatient (CLI) | payer OTHER ==
[~2020-12-19] MED LIST changes: +LABE200T32 PO
--- NOTE | 2020-12-19 11:02 | REP ---
INDICATION: IUGR,GROWTH,BPP W/CORD DOPPLERS COMPARISON: 12/13/2020 TECHNIQUE: Transabdominal obstetrical ultrasound with color Doppler evaluation. FINDINGS: Examination demonstrates a single live intrauterine in cephalic presentation. motion is identified by technologist. Placenta is noted anterior and grade 1 without evidence for placenta previa or abruption. Amniotic fluid volume is normal. Cervix measures 3.8 cm in length and appears closed.. Gestational age by LMP 27 weeks 1 day with CHEKO 03/19/2021. FHR equals 138 beats per minute. DEVAN: 8.3 cm (9.5-22.6) Biophysical profile score: 8/8 Anatomical assessment demonstrates normal structures including four-chamber heart/cardiac ventricular outflow tracts, and nose/lips. Echogenic focus in the left cardiac ventricle again noted and likely prominent chordae tendineae. IMPRESSION: Single live intrauterine in cephalic presentation. Biophysical profile score normal. Amniotic fluid volume is below normal suggesting polyhydramnios. <Electronically signed by Michel Geiger > 12/19/20 [id number]
== END ==
LOC: M WHC 09:53
PROVIDERS: ATTEND Advanced Practice Midwife
DX: O36.5920 Maternal care for other known or suspected poor fetal growth, second trimester, not applicable or unspecified (principal); O28.3 Abnormal ultrasonic finding on antenatal screening of mother

== ENCOUNTER → 2020-12-26 | Outpatient (REF) | payer OTHER ==
[2020-12-26 15:18] LABS: HEMATOCRIT 36.4 % (36.0-47.0); HEMOGLOBIN 11.4 g/dl (12.0-15.5); MEAN CORPUSCULAR HGB CONC 31.3 g/dl (32.0-36.5); MEAN CORPUSCULAR VOLUME 86.3 fl (80.0-96.0); PLATELET COUNT, AUTOMATED 281 10^3/uL (150-450); RED BLOOD COUNT 4.22 10^6/uL (4.00-5.40); WHITE BLOOD COUNT 8.8 10^3/uL (4.0-10.0)
== END ==
LOC: M PLALAB 12:39
PROVIDERS: ATTEND Advanced Practice Midwife
DX: O36.5920 Maternal care for other known or suspected poor fetal growth, second trimester, not applicable or unspecified (principal)
CPT/HCPCS: 36415; 82950; 85027; 86850; 86900; 86901; J2790

== ENCOUNTER → 2020-12-28 | Outpatient (CLI) | payer OTHER ==
--- NOTE | 2020-12-28 13:51 | REP ---
INDICATION: IUGR, OLIGO COMPARISON: 12/19/2020 TECHNIQUE: Transabdominal obstetrical ultrasound with color Doppler evaluation. FINDINGS: Examination demonstrates a single live intrauterine in cephalic presentation. motion is identified by technologist. Placenta is noted anterior/left lateral and grade 1 without evidence for placenta previa or abruption. Amniotic fluid volume is decreased. Cervix measures 2.9 cm in length and appears closed. There is no evidence for funneling. Gestational age by LMP and 1st U/S 28 weeks 3 days with CHEKO 03/19/2021. FHR equals 153 beats per minute. DEVAN: 7.2 cm (9.3-22.9) Biophysical profile score: 8/8 Umbilical artery SD ratio: 4.35 (2.07-4.30) IMPRESSION: Single live gestation in cephalic presentation. Oligohydramnios again noted. Biophysical profile score: 8/8. <Electronically signed by Michel Geiger > 12/28/20 [id number]
== END ==
LOC: M RAD 12:59
PROVIDERS: ATTEND Advanced Practice Midwife
DX: O10.919 Unspecified pre-existing hypertension complicating pregnancy, unspecified trimester (principal); O41.00X0 Oligohydramnios, unspecified trimester, not applicable or unspecified; Z3A.28 28 weeks gestation of pregnancy

== ENCOUNTER → 2020-12-29 | Outpatient (CLI) | payer OTHER ==
--- NOTE | 2020-12-29 14:37 | REP ---
INDICATION: IUGR,BPP W/CORD DOPPLERS. COMPARISON: 12/28/2020. TECHNIQUE: Real-time sonographic evaluation of gravid uterus performed. FINDINGS: There is a single living intrauterine gestation, estimated gestational age is reportedly 20 weeks 4 days, EDC 03/19/2021. position cephalic. Placenta anterior and grade 2. There is no previa. heart rate 150 beats per minute. Amniotic fluid within normal limits. DEVAN 12.0, normal range 9.3-23.0. Biophysical profile score 8/8. SD ratio umbilical artery 3.28, normal range 2.05-4.28. RI 0.70, normal range 0.54-0.77. IMPRESSION: Biophysical profile score 8/8. <Electronically signed by Carl Le > 12/29/20 [id number]
== END ==
LOC: M WHC 13:28
PROVIDERS: ATTEND Advanced Practice Midwife
DX: O10.919 Unspecified pre-existing hypertension complicating pregnancy, unspecified trimester (principal); Z3A.20 20 weeks gestation of pregnancy

== ENCOUNTER → 2021-01-04 | Outpatient (CLI) | payer OTHER ==
--- NOTE | 2021-01-04 10:55 | REP ---
INDICATION: GROWTH/BPP/CORD DOPPLERS COMPARISON: None. TECHNIQUE: Transabdominal obstetrical ultrasound with color Doppler evaluation. FINDINGS: Examination demonstrates a single live intrauterine in cephalic presentation. motion is identified by technologist. Placenta is noted anterior/left lateral and grade 1 without evidence for placenta previa or abruption. Amniotic fluid volume is normal. Cervix measures 3.7 cm in length and appears closed.. Selected gestational age: 29 weeks 3 days with CHEKO 03/19/2021. Gestational age by current measurements 29 weeks 3 days with CHEKO 03/19/2021. FHR equals 138 beats per minute. BPD: 7.7 cm at 31 weeks 0 days HC: 27.0 cm at 29 weeks 3 days AC: 24.1 cm at 28 weeks 2 days FL: 5.6 cm at 29 weeks 2 days HL: 4.9 cm at 29 weeks 0 days HC/AC: 1.12 Estimated weight 1309 grams (23rdpercentile). DEVAN: 8.9 cm (9.1-23.2) Biophysical profile score: 8/8 Umbilical artery SD ratio: 2.11, 1.93 (2.00-4.17) IMPRESSION: 1. Single live intrauterine in cephalic presentation demonstrating appropriate estimated weight and interval growth. 2. Amniotic fluid volume is below normal range. 3. Biophysical profile score normal. <Electronically signed by Michel Geiger > 01/04/21 1327
== END ==
LOC: M WHC 09:50
PROVIDERS: ATTEND Advanced Practice Midwife
DX: Z36.2 Encounter for other antenatal screening follow-up (principal); O36.5920 Maternal care for other known or suspected poor fetal growth, second trimester, not applicable or unspecified; O41.03X0 Oligohydramnios, third trimester, not applicable or unspecified; Z3A.29 29 weeks gestation of pregnancy

== ENCOUNTER → 2021-01-10 | Outpatient (CLI) | payer OTHER ==
--- NOTE | 2021-01-10 15:58 | REP ---
INDICATION: BPP/CORD DOPPLER. COMPARISON: None. TECHNIQUE: Transabdominal scanning. FINDINGS: Multiple ultrasonographic images shows a single living intrauterine gestation in the cephalic presentation. Doppler interrogation of the heart shows a heart rate of 161 beats per minute. The subjective amniotic fluid volume is within normal limits. The calculated amniotic fluid index is 12.3 with an expected range 8.9 to 23.5. Doppler interrogation of the umbilical artery shows an AB ratio of 2.34. This is within the normal range. The cervix measures 3.7 cm in length and is closed. biophysical profile score is 2 for breathing, 2 for movement, 2 for tone, and 2 for amniotic fluid volume giving a sum total of 8/8. IMPRESSION: Limited OB ultrasound as described above. <Electronically signed by Frank Anderson > 01/10/21 [id number]
== END ==
LOC: M WHC 11:20
PROVIDERS: ATTEND Advanced Practice Midwife
DX: O36.5920 Maternal care for other known or suspected poor fetal growth, second trimester, not applicable or unspecified (principal); Z3A.00 Weeks of gestation of pregnancy not specified

== ENCOUNTER 2021-01-17 15:59 | Outpatient (CLI) | payer OTHER ==
[~2021-01-17] VITALS: Ht 160 cm; Wt 130.9 kg
[2021-01-17 16:19] VITALS: BP 159/84
[2021-01-17 16:44] VITALS: BP 140/67
--- NOTE | 2021-01-17 17:54 | REP ---
INDICATION: DECREASED MOVEMENT, HTN. COMPARISON: Comparison sonography January 10, 2021.. TECHNIQUE: Transabdominal obstetric sonography. Limited obstetric sonography. FINDINGS: Scanning demonstrates a viable single intrauterine gestation in a cephalic lie. heart rate is recorded at 144 beats per minute. A anterior grade 1-2 placenta is seen without evidence of previa. Closed cervical length is 3.1 cm. Amniotic fluid is subjectively low normal. DEVAN is normal at 10.8 cm (8.7-23.9) biophysical profile score is 8 out of a possible 8. SD ratio in the umbilical cord artery by Doppler is normal at 2.26. IMPRESSION: Biophysical profile score 8 out of a possible 8. <Electronically signed by Sameer Yeboah > 01/17/21 2008
--- NOTE | 2021-01-17 18:53 | IPN ---
PROGRESS NOTE DATE: 01/17/2021 SUBJECTIVE: Wendy Matthew is a 25-year-old 1, para 0 at 31 weeks and 2 days with an EDC of 03/19/2021 based on first trimester ultrasound. She presents to labor and delivery today with a complaint of decreased movement. She reports she had not felt the fetus at all today. She denies regular contractions, vaginal bleeding, and leakage of fluid. Her care was initiated at [facility] in the first trimester. course complicated by morbid obesity, chronic hypertension. Her current regimen is labetalol 200 mg p.o. twice daily. She was diagnosed with IUGR and oligohydramnios. The IUGR has resolved. The most recent growth ultrasound was on January 04, 2021 with a weight of 1309 gm, fetus in the 23rd percentile. She does have borderline oligohydramnios. 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 OBSTETRIC HISTORY: Primigravida. OBSTETRIC LABS: Blood type is O negative. Antibody screen negative. Her syphilis is negative. Gonorrhea and chlamydia negative. Hepatitis B surface antigen negative. Hepatitis C antibody nonreactive. HIV nonreactive. Rubella immune. Her gestational diabetic screening is normal at 123. She has undergone betamethasone injections and is beta complete at this time due to severe hypertension. PAST MEDICAL HISTORY: 1. Chronic hypertension. 2. Kidney stones. 3. Heart murmur that resolved as a child. 4. Cystic fibrosis carrier. 5. Childhood varicella. SURGERIES: Oral surgery. FAMILY HISTORY: Bipolar, anxiety, depression. SOCIAL HISTORY: The patient is single. The father of the baby is involved. She is a nonsmoker. Denies alcohol and drug use. No history of sexually transmitted infections and she denies history of abuse, physical, sexual, and emotional. ALLERGIES: AMOXICILLIN. CURRENT MEDICATIONS: 1. vitamin. 2. Labetalol 200 mg p.o. twice daily. OBJECTIVE: Upon arrival, temperature 98.3, pulse 99, respirations 19, BP 159/84. She was anxious and nervous. Follow up blood pressure 140/67. The heart rate is difficult to trace due to body habitus. Appears to be about 135 with moderate variability. The tracing is broken. She did undergo a biophysical profile with a score of 8 points out of 8 points, reassuring status. ASSESSMENT: Intrauterine at 31-2/7 weeks. BPP 8 out of 8. Chronic hypertension. Stable for discharge. PLAN: Discharge the patient home. She has a visit scheduled tomorrow in the office. She was advised to keep the scheduled appointment. I did review signs and symptoms of labor, movements counts, and danger signs to report. I reviewed access to care. The patient has had all of her questions answered and desires discharge home.
== END 2021-01-17 17:55 | disposition home or self-care (01) ==
LOC: M LDO 15:59
PROVIDERS: ATTEND Advanced Practice Midwife
DX: O36.8130 Decreased fetal movements, third trimester, not applicable or unspecified (principal); Z3A.31 31 weeks gestation of pregnancy; O10.013 Pre-existing essential hypertension complicating pregnancy, third trimester; O99.213 Obesity complicating pregnancy, third trimester; E66.01 Morbid (severe) obesity due to excess calories; O41.03X0 Oligohydramnios, third trimester, not applicable or unspecified; Z14.1 Cystic fibrosis carrier; Z88.1 Allergy status to other antibiotic agents; Z79.899 Other long term (current) drug therapy; Z68.43 Body mass index [BMI] 50.0-59.9, adult

== ENCOUNTER → 2021-01-18 | Outpatient (CLI) | payer OTHER ==
--- NOTE | 2021-01-18 09:10 | REP ---
INDICATION: BPP/CORD DOPPLERS. COMPARISON: 01/17/2021. TECHNIQUE: Real-time sonographic evaluation of gravid uterus performed. FINDINGS: There is a single living intrauterine gestation. The estimated gestational age is 31 weeks 3 days EDC 03/19/2021. position cephalic. Placenta anterior and grade 1 with no previa. heart rate 142 beats per minute. Amniotic fluid within normal limits. DEVAN 12.2, normal 8.7-24.0. Biophysical profile score 8/8. SD ratio umbilical artery 2.17, normal 1.88-3.94. RI 0.54, normal 0.51-0.76. Cervix is closed and measures 3.2 cm in length. IMPRESSION: Biophysical profile score 8/8. <Electronically signed by Carl Le > 01/18/21 [id number]
== END ==
LOC: M WHC 08:01
PROVIDERS: ATTEND Advanced Practice Midwife
DX: O36.5920 Maternal care for other known or suspected poor fetal growth, second trimester, not applicable or unspecified (principal); Z3A.31 31 weeks gestation of pregnancy

== ENCOUNTER → 2021-01-25 | Outpatient (CLI) | payer OTHER ==
--- NOTE | 2021-01-25 11:08 | REP ---
INDICATION: IUGR,BPP W/CORD DOPPLERS COMPARISON: 01/18/2021 TECHNIQUE: Transabdominal obstetrical ultrasound with color Doppler evaluation. FINDINGS: Examination demonstrates a single live intrauterine in cephalic presentation. motion is identified by technologist. Placenta is noted anterior and grade 2 without evidence for placenta previa or abruption. Amniotic fluid volume is somewhat decreased. Selected gestational age: 32 weeks 3 days with CHEKO 03/19/2021. Gestational age by current measurements 31 weeks 6 days with CHEKO 03/23/2021. FHR equals 134 beats per minute. BPD: 8.5 cm at 34 weeks 1 day HC: 30.0 cm at 33 weeks 2 days AC: 27.0 cm at 31 weeks 1 day FL: 5.8 cm at 30 weeks 1 day HL: 5.2 cm at 30 weeks 3 days HC/AC: 1.11 Estimated weight 1728 grams (12thpercentile). DEVAN: 7.5 cm (8.5-24.3) Umbilical artery SD ratio: 2.91 (1.82-3.83) Biophysical profile score: 8/8 IMPRESSION: 1. Single live intrauterine in cephalic presentation demonstrating relatively normal estimated weight. 2. Amniotic fluid volume is below normal range raising the possibility of early oligohydramnios. <Electronically signed by Michel Geiger > 01/25/21 [id number]
== END ==
LOC: M WHC 10:25
PROVIDERS: ATTEND Advanced Practice Midwife
DX: O36.5920 Maternal care for other known or suspected poor fetal growth, second trimester, not applicable or unspecified (principal); Z3A.32 32 weeks gestation of pregnancy

== ENCOUNTER → 2021-02-01 | Outpatient (CLI) | payer OTHER ==
--- NOTE | 2021-02-01 11:11 | REP ---
INDICATION: IGUR, BPP, CORD DOPPLERS COMPARISON: 01/26/2020 TECHNIQUE: Transabdominal obstetrical ultrasound with color Doppler evaluation. FINDINGS: Examination demonstrates a single live advanced intrauterine in cephalic presentation. motion is identified by technologist. Placenta is noted anterior and grade 2 without evidence for placenta previa or abruption. Amniotic fluid volume is normal. Cervix measures 4.2 cm in length and appears closed.. Selected gestational age: 33 weeks 3 days with CHEKO 03/19/2021. FHR equals 135 beats per minute. Biophysical profile score: 8/8 DEVAN: 11.0 cm (8.2-24.6) Umbilical artery SD ratio: 3.20 (1.77-3.73) IMPRESSION: Single live advanced gestation in cephalic presentation. Biophysical profile and amniotic fluid volume are normal. <Electronically signed by Michel Geiger > 02/01/21 [id number]
== END ==
LOC: M WHC 10:21
PROVIDERS: ATTEND Advanced Practice Midwife
DX: O36.5920 Maternal care for other known or suspected poor fetal growth, second trimester, not applicable or unspecified (principal); Z3A.33 33 weeks gestation of pregnancy

== ENCOUNTER 2021-02-08 15:15 | Inpatient (IN) | payer OTHER ==
[~2021-02-08] VITALS: Ht 160 cm; Wt 136.9 kg
[2021-02-08] VITALS (18 sets, daily range): BP systolic 133–182; BP diastolic 64–115
[2021-02-08 17:15] LABS: HEMATOCRIT 34.6 % (36.0-47.0); MEAN CORPUSCULAR HEMOGLOBIN 27.3 pg (27.0-33.0); MEAN CORPUSCULAR HGB CONC 31.8 g/dl (32.0-36.5); MEAN CORPUSCULAR VOLUME 85.9 fl (80.0-96.0); PLATELET COUNT, AUTOMATED 251 10^3/uL (150-450); RED BLOOD COUNT 4.03 10^6/uL (4.00-5.40); WHITE BLOOD COUNT 10.7 10^3/uL (4.0-10.0)
[2021-02-08 17:32] LABS: ALT/SGPT 25 U/L (12-78); BILIRUBIN,TOTAL 0.1 MG/DL (0.2-1.0); CREATININE FOR GFR 0.59 MG/DL (0.55-1.30); GLOMERULAR FILTRATION RATE > 60.0 (>60); LDH LACTATE DEHYDROGENASE 181 U/L (84-246); URIC ACID 4.8 MG/DL (2.6-6.0)
[2021-02-08] MEDS: LABETALOL 200 MG TAB PO SCH (21:40)
[2021-02-08] MEDS ORDERED: BETAMETHASONE SOLUSPAN 6MG/ML 5ML VIAL (J0702 PER 3MG) IM ONE (22:35)
--- NOTE | 2021-02-08 22:55 | HPEPDOC ---
Obstetrical History & Physical General Date of Admission Feb 08, 2021 at 20:54 History of Present Illness 25-year-old 1 para 0 at 34 weeks 3 days estimated gestational age presents with chronic hypertension with superimposed preeclampsia. She was seen in the office today and was noted to have severe range blood pressures. She previously been diagnosed with superimposed preeclampsia. This is also been complicated by intrauterine growth restriction and oligohydramnios at 22 weeks. This has since resolved. She completed a course of steroids and management. Patient currently denies persistent headaches visual changes or abdominal pain. She has been monitored very labile blood pressure recovering with systolics in the 160s-180s Chief Complaint: Pre-eclamsia, Induction of labor Age: 25 : 1 Care Care: Good Care Dating Final EDC: Mar 19, 2021 Final EDC by: 1st trimester (US) EGA at Admission: 34 Past Medical History Past Obstetrical History : Past Obstetrical History: Primgravida Past Medical History Medical History Cystic fibrosis carrier. Father of baby is negative. Surgical History: Denies/None, Other (oral surgery) Social History Marital Status: Single Psychosocial History: No pertinent psych hx, Depression * Smoker: non-smoker Alcohol: Denies Allergies Coded Allergies: amoxicillin (Verified Allergy, Intermediate, 11/27/20) hives, swelling Medications Scheduled Labetalol HCl (Labetalol HCl) 200 Mg Tablet, 200 MG PO BID No115/Iron/Folic Acid ( 19 Chewable Tablet) 1 Each Tab.chew, 1 TAB PO DAILY Physical Examination Physical Examination GENERAL: Alert and oriented times three. BREAST: . ABDOMEN: Gravid and non-tender to touch. FETUS: Is vertex (VTX) by sterile vaginal examination (SVE), fetus is vertex (VTX) by Boy. HEART RATE: Regular rate and rhythm. LUNGS: Clear to auscultation (CTA). Vital Signs/I&O Vital Signs Date Time Temp Pulse Resp B/P (MAP) Pulse Ox O2 Delivery O2 Flow Rate FiO2 02/08/21 21:40 91 162/84 02/08/21 21:34 18 02/08/21 19:26 98.4 Laboratory Data 24H LABS Laboratory Tests 2 02/08/21 16:52: Nucleated Red Blood Cells % (auto) 0.0, Glomerular Filtration Rate > 60.0, Uric Acid 4.8, Total Bilirubin 0.1L, Aspartate Amino Transf (AST/SGOT) 20, Alanine Aminotransferase (ALT/SGPT) 25, Lactate Dehydrogenase 181 02/08/21 20:58: Serology Scanned Report Hepatitis B Testing 02/08/21 21:43: CBC/BMP Laboratory Tests 02/08/21 16:52 Pertinent Laboratoy Data Blood Type: O- RBC Antibody Screen: Negative HIV: Negative Hepatitis B: Negative Hepatitis C: Negative Rubella: Immune Chlamydia/Gonorrhea: Negative Group B Streptococcus: Unknown Cystic Fibrosis: Positive Glucose Tolerance Test: 123 Anatomy Ultrasound Placenta Location: Anterior Placenta Previa: No Steroid Therapy Steroid Therapy: Yes Vaginal Examination Dilation: None Station: -3 Cervical Consistency: Firm Cervical Position: Middle Presentation: Cephalic presentation Assessment Variability: Moderate Tocometer Contractions: No Assessment/Plan Assessment 25-year-old 1 at 34 weeks 3 days estimated gestational age with chronic hypertension with superimposed preeclampsia. Reassuring status Plan Admit and orient. -Patient's been thoroughly counseled regarding her diagnosis. I discussed superimposed preeclampsia. I discussed induction labor. Discussed medications also procedures performed in labor and delivery. She's been verbally consented for emergency surgery, blood products, anesthesia and desires to proceed with admission and induction labor. Plan to increase labetalol to 200 mg 3 times a day. IV labetalol per protocol. Magnesium sulfate active labor. MARITA GARZA MD. Feb 08, 2021 22:55
[2021-02-09] VITALS (60 sets, daily range): BP systolic 87–177; BP diastolic 46–99
[2021-02-09] MEDS: miSOPROStol 50MCG 1/2 TABLET PO SCH ×2 (01:56→05:00)
--- NOTE | 2021-02-09 08:07 | IPNPDOC ---
Text Note Date of Service The patient was seen on 02/09/21. NOTE Progress remains comfortable. BP's remain mildly elevated at present Irregular UC Cat I tracing SVE long, closed high, soft Will start low dose pitocin per consult Dr Pang. Consider cooks catheter VS,Fishbone, I+O VS, Fishbone, I+O Laboratory Tests 02/08/21 16:52 Vital Signs Date Time Temp Pulse Resp B/P (MAP) Pulse Ox O2 Delivery O2 Flow Rate FiO2 02/09/21 07:07 99.4 71 18 154/73 (100) Alis Whalen CNM Feb 09, 2021 08:07
[2021-02-09] MEDS ORDERED: OXYTOCIN DRIP 30 UNITS in IV 1 EA IV SCH (08:10)
[2021-02-09] MEDS: LABETALOL 200 MG TAB PO SCH ×3 (08:47→21:07)
[2021-02-09 13:07] LABS: HEMOGLOBIN 11.7 g/dl (12.0-15.5); MEAN CORPUSCULAR HEMOGLOBIN 27.7 pg (27.0-33.0); MEAN CORPUSCULAR HGB CONC 32.5 g/dl (32.0-36.5); MEAN CORPUSCULAR VOLUME 85.1 fl (80.0-96.0); PLATELET COUNT, AUTOMATED 287 10^3/uL (150-450); RED BLOOD COUNT 4.23 10^6/uL (4.00-5.40); WHITE BLOOD COUNT 14.4 10^3/uL (4.0-10.0)
[2021-02-09] MEDS: LR 1,000 ML IV SCH ×2 (13:23→21:15)
[2021-02-09 13:30] LABS: ALT/SGPT 26 U/L (12-78); BILIRUBIN,TOTAL 0.2 MG/DL (0.2-1.0); CREATININE FOR GFR 0.68 MG/DL (0.55-1.30); GLOMERULAR FILTRATION RATE > 60.0 (>60); LDH LACTATE DEHYDROGENASE 206 U/L (84-246); URIC ACID 5.6 MG/DL (2.6-6.0)
--- NOTE | 2021-02-09 18:34 | IPNPDOC ---
Text Note Date of Service The patient was seen on 02/09/21. NOTE Progress Pitocin was discontinued due to inability to adequately monitor fetus and variable decels Has since been resumed, currently @ 6mu FH 135, Cat I with episodes Cat II (mild bradycardia vs maternal HR) Difficult to trace due to habitus UC Mild, 3-5 minutes Reports feeling "wet" spec exam thin watery fluid in vagina, neg nitrazine, neg fern SVE unable to reach cervix Dr Pang updated on patient status. Will maintain low dose pitocin overninght. VS,Fishbone, I+O VS, Fishbone, I+O Laboratory Tests 02/09/21 12:55 Vital Signs Date Time Temp Pulse Resp B/P (MAP) Pulse Ox O2 Delivery O2 Flow Rate FiO2 02/09/21 17:55 75 18 153/70 (97) 02/09/21 10:26 98.2 Alis Whalen CNM Feb 09, 2021 18:34
[2021-02-09] MEDS ORDERED: FENTANYL 2MCG/ML ROPIVACAINE 0.2% IN 0.9% NACL 100ML IVBAG As Ordered ONE (21:55)
[2021-02-09] MEDS ORDERED: NALOXONE INJ 0.4MG/1ML VIAL (J2310 PER 1MG) IV PRN (22:40)
[2021-02-09] MEDS ORDERED: LACTATED RINGER'S 1000 ML IV PRN (22:40)
[2021-02-09] MEDS ORDERED: EPIDURAL COMMENT XX SCH (22:40)
[2021-02-09] MEDS ORDERED: EPIDURAL/PCA KEYS XX PRN (22:40)
[2021-02-09] MEDS ORDERED: diphenhydrAMINE 50MG/ML VIAL (J1200) IV PRN (22:40)
[2021-02-09] MEDS ORDERED: REFRIGERATOR IV KEYS XX PRN (22:40)
[2021-02-09] MEDS ORDERED: FENTANYL/ROPIVACAINE/NACL BAG 100 ML EPIDURAL SCH (22:40)
[2021-02-09] MEDS ORDERED: ONDANSETRON 4MG/2ML VIAL IV PRN (22:40)
--- NOTE | 2021-02-09 22:40 | IPNPDOC ---
Text Note Date of Service The patient was seen on 02/09/21. NOTE Progress Becoming very uncomfortable, weeping with UC Pitocin off for the past 2 hours due to variable decels Continues to leak fluid, indeterminant if amniotic fluid Low baseline FH, primarily Cat I with episodes Cat II SVE /-3, difficult exam, maternal weeping and guarding Reviewed pt status with Dr Pang Will obtain epidural. If ruptured, internalize for FH and UC Observe overnight for further progress. VS,Fishbone, I+O VS, Fishbone, I+O Laboratory Tests 02/09/21 12:55 Vital Signs Date Time Temp Pulse Resp B/P (MAP) Pulse Ox O2 Delivery O2 Flow Rate FiO2 02/09/21 21:07 99 148/68 02/09/21 20:33 18 02/09/21 19:05 98.0 Alis Whalen CNM Feb 09, 2021 22:40
[2021-02-10] VITALS (15 sets, daily range): BP systolic 115–150; BP diastolic 56–93
[2021-02-10] MEDS: ePHEDrine SULFATE 25 MG/5 ML(5MG/ML) SYRINGE IV PRN ×2 (00:03→00:07)
[2021-02-10] MEDS: LR 1,000 ML IV SCH (00:08)
--- NOTE | 2021-02-10 00:15 | IPNPDOC ---
Text Note Date of Service The patient was seen on 02/10/21. NOTE Progress Comfortable with epidural FSE and IUPC placed Cat II- Cat III tracing noted with spontaneous contractions, no pitocin Dr Pang alerted. VS,Fishbone, I+O VS, Fishbone, I+O Laboratory Tests 02/09/21 12:55 Vital Signs Date Time Temp Pulse Resp B/P (MAP) Pulse Ox O2 Delivery O2 Flow Rate FiO2 02/09/21 22:32 98 16 155/66 (95) 02/09/21 22:02 97.7 I&O- Last 24 Hours up to 6 AM 02/10/21 06:00 Intake Total 1628 ml Output Total 700 ml Balance 928 ml Alis Whalen CNM Feb 10, 2021 00:15
[2021-02-10] MEDS ORDERED: LACTATED RINGER'S 1000 ML IV STA (00:22)
[2021-02-10] MEDS ORDERED: MORPHINE PRES-FREE INJ 10 MG/10 ML VIAL (J2274) As Ordered ONE (00:24)
[2021-02-10] MEDS ORDERED: BICITRA 30ML SOLN UDC PO ONE (00:25)
[2021-02-10] MEDS ORDERED: ceFAZolin SOD 3 GM IV Place Holder IV ONE (00:25)
[2021-02-10] MEDS ORDERED: AZITHROMYCIN INJ 500 MG, VIAL MATE ADAPTER 1 EACH in NS 250 ML IV ONE (00:25)
[2021-02-10] MEDS ORDERED: LR 1,000 ML IV SCH (00:25)
[2021-02-10] MEDS ORDERED: OXYTOCIN 30 UNITS IN 0.9% NaCl 500ML IV BAG (J2590) As Ordered ONE (00:26)
[2021-02-10] MEDS ORDERED: ceFAZolin SOD 1 GM in D5W MINI-BAG PLUS 50 ML IV ONE (00:30)
[2021-02-10] MEDS ORDERED: ceFAZolin SOD 2 GM in IV 1 EA IV ONE (01:00)
[2021-02-10] MEDS ORDERED: NALBUPHINE HCL 10 MG/ML AMP (J2300) IV PRN ×2 (01:07→02:05)
[2021-02-10] MEDS ORDERED: NALOXONE INJ 0.4MG/1ML VIAL (J2310 PER 1MG) IV PRN ×2 (01:07)
[2021-02-10] MEDS ORDERED: METOCLOPRAMIDE INJ 10MG/2ML VIAL (J2765 PER 1) IV PRN (01:07)
[2021-02-10] MEDS ORDERED: ONDANSETRON 4MG/2ML VIAL IV PRN ×3 (01:07→02:05)
[2021-02-10] MEDS ORDERED: diphenhydrAMINE 50MG/ML VIAL (J1200) IV PRN (01:07)
[2021-02-10] MEDS ORDERED: ONDANSETRON 4MG/2ML VIAL As Ordered ONE (01:08)
[2021-02-10] MEDS ORDERED: dexameTHASONE 4 MG/ML 1ML VIAL (J1100 PER 1MG) As Ordered ONE (01:08)
[2021-02-10] MEDS ORDERED: OXYTOCIN INJ 10 UNITS/ML VIAL (J2590) As Ordered ONE (01:26)
[2021-02-10] MEDS ORDERED: PHENYLephrine 500MCG 5ML (100MCG/ML) SYRINGE As Ordered ONE (01:31)
[2021-02-10] MEDS ORDERED: KETOROLAC 60MG 2ML VIAL As Ordered ONE (01:31)
[2021-02-10 01:48] LABS: CORD GAS ABE V -9.1; CORD GAS HCO3 V 19.7 MEQ/L; CORD GAS O2 SAT V 64.2 %; CORD GAS PCO2 V 53.7 mmHg; CORD GAS PH V 7.183 UNITS; CORD GAS PO2 V 28.8 mmHg; CORD GAS SBC V 16.6 MEQ/L; CORD GAS TCO2 V 21.4 MEQ/L
[2021-02-10 01:51] LABS: CORD GAS HCO3 A 22.9 MEQ/L; CORD GAS O2 SAT A 38.7 %; CORD GAS PCO2 A 65.1 mmHg; CORD GAS PH A 7.165 UNITS; CORD GAS PO2 A 20.2 mmHg; CORD GAS SBC A 17.5 MEQ/L; CORD GAS TCO2 A 24.9 MEQ/L
[2021-02-10] MEDS ORDERED: SIMETHICONE 80MG CHEW TAB PO PRN (01:55)
[2021-02-10] MEDS ORDERED: RHOGAM 300 MCG (1500 IU) INJ (J2790) IM SCH (01:55)
[2021-02-10] MEDS ORDERED: MEASLES,MUMPS,RUBELLA VACCINE INJ (MMR-II) (90707) SC SCH (01:55)
[2021-02-10] MEDS ORDERED: PERCOCET 5MG/325MG TAB PO PRN (01:55)
[2021-02-10] MEDS ORDERED: oxyCODONE 5MG TAB PO PRN (02:05)
[2021-02-10] MEDS ORDERED: fentaNYL 100 MCG/2 ML INJECTION (J3010) IV PRN (02:05)
--- NOTE | 2021-02-10 02:10 | ROOPDOC ---
[facility] Report Of Operation Report of Operation DATE OF PROCEDURE: 02/11/2020 PREPROCEDURE DIAGNOSES: 34+5 weeks gestation, preeclampsia with severe features, nonreassuring heart rate tracing/persistent category 2 and remote from delivery POSTPROCEDURE DIAGNOSES: Same PROCEDURE: Primary low transverse section SURGEON: Trey Pang DO FACOG COMPLIANCE NURSE: Clementine Lester MD (Essential role in retraction, extraction, and closure of all tissue layers) ANESTHESIA: Epidural ESTIMATED BLOOD LOSS: 700 mL. IV FLUIDS: 1400 mL LR URINE OUTPUT: 100 mL COMPLICATIONS: None. PREOPERATIVE ANTIBIOTICS: Ancef 3g IV x 1, Azithromycin 500mg IV. COMPLICATIONS: none DATA: Apgars 8 and 9. Birthweight 1612 g, 3 lbs 9 oz. Cord gases: arterial pH 7.165/-7 , venous pH 7.183/-9.1 SPECIMENS: none PRIMARY INDICATION FOR : Non-reassuring FHR, Cat II DESCRIPTION OF PROCEDURE: The patient was counseled on the risks, benefits, indications and alternatives of the procedure. Informed consent was obtained. She was taken to the operating room with IV running and placed on the operating table in the dorsal supine position with a leftward tilt. Regional anesthesia was found to be adequate. Sequential compression devices were placed on the lower extremities. A Lopez catheter was placed under sterile conditions. She was prepared and draped in normal sterile fashion. A time out was performed per protocol. Regional anesthesia was again found to be adequate. A Pfannenstiel skin incision was made with the 10 blade. The 10 blade was used to dissect down to the level of the rectus sheath fascia. The rectus sheath pressure was incised midline and this was extended bilaterally with Mark scissors , and manual stretch. The rectus muscle bellies were dissected off the rectus sheath fascia superiorly and inferiorly using both sharp and blunt dissection. The midline was identified. The peritoneum was identified and entered digitally. The peritoneal opening was extended with manual stretch. The Mobius retractor was placed. The vesicouterine peritoneum was dissected with Metzenbaum scissors to create the bladder flap. A low transverse uterine incision was made with the 10 blade. This was extended with manual stretch. The amniotic sac was punctured, and clear fluid was noted. The baby delivered through the hysterotomy without difficulty. The cord was doubly clamped and cut, and the baby was handed off to awaiting care. data shown above. Cord blood obtained. Cord gases were obtained. The placenta was removed manually. The intrauterine cavity was cleared of all clot and debris. The hysterotomy was closed with 0 Vicryl in running locked fashion. This was reinforced with a second imbricating layer using 0 Vicryl in running fashion. Excellent hemostasis of the hysterotomy was noted. The pelvis was irrigated and the fluid suctioned. The Mobius retractor was removed. The peritoneum was closed with 3-0 Vicryl running fashion. The rectus muscles bellies were hemostatic. The rectus sheath fascia was closed with 0 Vicryl running fashion. The subcutaneous layer was irrigated and the fluid suctioned. Small bleeding vessels were cauterized with Bovie. Excellent hemostasis was noted. The subcutaneous layer was reapproximated with 3-0 Vicryl running fashion. Skin was closed with 3-0 Monocryl in subcuticular fashion. An Optifoam bandage was placed over the closed incision. Sponge, needle and instrument counts were correct per protocol throughout the procedure. The patient tolerated the entire procedure very well. She was transferred to the PACU in stable condition. DO CHELY Nava JONATHAN R. DO Feb 10, 2021 02:10
[2021-02-10] MEDS: PRENATAL VITAMINS CHEWABLE TABLET PO SCH (08:48)
[2021-02-10] MEDS: DOCUSATE SODIUM 100MG CAPSULE PO SCH ×2 (08:48→22:09)
[2021-02-10] MEDS: ENOXAPARIN 40MG/0.4ML SYRINGE (J1650 PER 10MG) SC SCH ×2 (08:50→22:08)
[2021-02-10] MEDS: KETOROLAC 30 MG/ML 1ML VIAL IV SCH ×3 (08:51→19:50)
[2021-02-10] MEDS: LABETALOL 200 MG TAB PO SCH ×3 (08:52→22:12)
[2021-02-10] MEDS ORDERED: BOOSTRIX/ADACEL VACCINE (DIPHTH/PERTUSS/ACELL/TETANUS) 0.5ML SYR IM ONE (09:00)
[2021-02-11] VITALS (8 sets, daily range): BP systolic 137–174; BP diastolic 66–79
[2021-02-11] MEDS: IBUPROFEN 800 MG TAB PO SCH ×3 (04:06→21:17)
[2021-02-11] MEDS: PERCOCET 5MG/325MG TAB PO PRN ×2 (04:14→22:17)
[2021-02-11 07:54] LABS: HEMATOCRIT 28.7 % (36.0-47.0); MEAN CORPUSCULAR HEMOGLOBIN 27.4 pg (27.0-33.0); MEAN CORPUSCULAR HGB CONC 31.4 g/dl (32.0-36.5); MEAN CORPUSCULAR VOLUME 87.2 fl (80.0-96.0); PLATELET COUNT, AUTOMATED 240 10^3/uL (150-450); RED BLOOD COUNT 3.29 10^6/uL (4.00-5.40); WHITE BLOOD COUNT 16.4 10^3/uL (4.0-10.0)
[2021-02-11] MEDS: PRENATAL VITAMINS CHEWABLE TABLET PO SCH (08:23)
[2021-02-11] MEDS: DOCUSATE SODIUM 100MG CAPSULE PO SCH ×2 (08:23→22:01)
[2021-02-11] MEDS: LABETALOL 200 MG TAB PO SCH ×3 (08:23→21:16)
[2021-02-11] MEDS: ENOXAPARIN 40MG/0.4ML SYRINGE (J1650 PER 10MG) SC SCH ×2 (08:24→22:02)
--- NOTE | 2021-02-11 10:48 | IPNPDOC ---
Progress Note Date of Service: Feb 11, 2021 Day#: 1 Progress Note SUBJECT: Status post primary LTCS. She has been ambulating, voiding spontaneously without issue and tolerating regular diet. Lochia decreasing/minimal. Pain is well-controlled. Incision bandage is clean/unsaturated. Denies headache, visual changes, right upper quadrant pain, shortness of breath or chest pain. Patient has been complicated by preeclampsia with severe features thus the induction of labor that resulted in a nonreassuring heart rate tracing and primary low transverse section. She has been clinically stable since delivery. OBJECTIVE: VITAL SIGNS: Mild hypertension, afebrile. Alert and oriented times three. Abdomen: Fundus firm at U-2. Soft, NTTP. Incision bandage not soaked through ASSESSMENT: Status post PLTCS. Vitals stable/mild hypertension, afebrile, hemodynamically stable with no evidence of infection. Patient exhibiting no symptoms of preeclampsia. PLAN: Routine /postoperative advancement Postoperative instructions/precautions reviewed. Continue labetalol 200 mg 3 times daily VS, I&O, 24H, Fishbone Vital Signs/I&O Vital Signs Date Time Temp Pulse Resp B/P (MAP) Pulse Ox O2 Delivery O2 Flow Rate FiO2 02/11/21 09:59 98.0 84 20 140/67 (91) 97 Room Air I&O- Last 24 Hours up to 6 AM 02/11/21 06:00 Intake Total 2485 ml Output Total 725 ml Balance 1760 ml Laboratory Data 24H LABS Laboratory Tests 2 02/11/21 07:09: Nucleated Red Blood Cells % (auto) 0.0 CBC/BMP Laboratory Tests 02/11/21 07:09 Microbiology Microbiology 02/08/21 Group B Streptococcus Screen (MARIE) - Final, Complete MATTEO ROWAN DO Feb 11, 2021 10:48
[2021-02-11] MEDS: ACETAMINOPHEN 500 MG TAB PO PRN (17:43)
[2021-02-11] MEDS ORDERED: LABETALOL 100MG/20ML VIAL IV STA (18:46)
[2021-02-12] VITALS (8 sets, daily range): BP systolic 116–188; BP diastolic 59–96
[2021-02-12] MEDS: IBUPROFEN 800 MG TAB PO SCH ×3 (04:00→20:42)
--- NOTE | 2021-02-12 08:13 | IPNPDOC ---
Progress Note Date of Service: Feb 12, 2021 Day#: 2 Progress Note SUBJECT: Status post PLTCS She has been ambulating, voiding spontaneously wit hout issue and tolerating regular diet. Lochia decreasing/minimal. Pain is well-controlled. Incision bandage is clean/unsaturated. Denies headache, visual changes, right upper quadrant pain, shortness of breath or chest pain. Severe pre-e OBJECTIVE: VITAL SIGNS: normotensive/mild HTN, afebrile. Alert and oriented times three. Abdomen: Fundus firm at U-2. Soft, NTTP. Incision bandage not soaked through ASSESSMENT: Status post uncomplicated PLTCS. Vitals within normal limits, afebrile, hemodynamically stable with no evidence of infection. PLAN: Discharge to home tomorrow Routine /postoperative advancement Postoperative instructions/precautions reviewed. Routine PP visit at 2 and 6 weeks in clinic. VS, I&O, 24H, Fishbone Vital Signs/I&O Vital Signs Date Time Temp Pulse Resp B/P (MAP) Pulse Ox O2 Delivery O2 Flow Rate FiO2 02/12/21 06:00 97.6 90 20 135/67 (89) 96 Room Air Laboratory Data Microbiology Microbiology 02/08/21 Group B Streptococcus Screen (MARIE) - Final, Complete MATTEO ROWAN DO Feb 12, 2021 08:13
[2021-02-12] MEDS: LABETALOL 200 MG TAB PO SCH ×3 (09:16→20:43)
[2021-02-12] MEDS: PRENATAL VITAMINS CHEWABLE TABLET PO SCH (09:16)
[2021-02-12] MEDS: DOCUSATE SODIUM 100MG CAPSULE PO SCH ×2 (09:16→20:42)
[2021-02-12] MEDS: ENOXAPARIN 40MG/0.4ML SYRINGE (J1650 PER 10MG) SC SCH ×2 (09:17→20:43)
[2021-02-12] MEDS: ACETAMINOPHEN 500 MG TAB PO PRN (14:41)
[2021-02-13 00:03] VITALS: BP 120/59
[2021-02-13] MEDS: IBUPROFEN 800 MG TAB PO SCH ×2 (04:35→12:00)
[2021-02-13 07:37] LABS: HEMATOCRIT 31.8 % (36.0-47.0); HEMOGLOBIN 9.8 g/dl (12.0-15.5); MEAN CORPUSCULAR HEMOGLOBIN 27.1 pg (27.0-33.0); MEAN CORPUSCULAR HGB CONC 30.8 g/dl (32.0-36.5); MEAN CORPUSCULAR VOLUME 87.8 fl (80.0-96.0); PLATELET COUNT, AUTOMATED 294 10^3/uL (150-450); RED BLOOD COUNT 3.62 10^6/uL (4.00-5.40); WHITE BLOOD COUNT 15.6 10^3/uL (4.0-10.0)
[2021-02-13] MEDS: ENOXAPARIN 40MG/0.4ML SYRINGE (J1650 PER 10MG) SC SCH (08:03)
[2021-02-13] MEDS: DOCUSATE SODIUM 100MG CAPSULE PO SCH (08:03)
[2021-02-13] MEDS: PRENATAL VITAMINS CHEWABLE TABLET PO SCH (08:03)
[2021-02-13 08:07] VITALS: BP 140/99
[2021-02-13] MEDS: LABETALOL 200 MG TAB PO SCH (08:07)
[2021-02-13] MEDS ORDERED: IBUP80TA PO (09:58)
[2021-02-13] MEDS ORDERED: LABE20TAB PO (09:58)
--- NOTE | 2021-02-13 10:16 | DS.PDOC ---
Discharge Summary General Date of Admission Feb 08, 2021 at 20:54 Date of Discharge February 13, 2021 Discharge Summary PROCEDURES PERFORMED DURING STAY: . ADMITTING DIAGNOSES: 1. preeclampsia with severe features, 34 3/7 weeks. DISCHARGE DIAGNOSES: 1. delivered. COMPLICATIONS/CHIEF COMPLAINT: B/P Check. HISTORY OF PRESENT ILLNESS: 25 yo G1 at 34 3/7 weeks gestation present from office for severe range blood pressures. HOSPITAL COURSE: 25 yo G1 at 34 3/7 weeks gestation present from office for severe range blood pressures. H/O chronic hypertension. Pt was diagnosed with superimposed severe pre-eclampsia. She received steroids. A labor induction was initiated with Misoprostol. She eventually was diagnosed with a non-reassuring tracing remote from delivery. On 02/10/2021 she had a primary section. Ther were no complications. Her post-op course was remarkable for elevated BP's. It was treated with Labetalol. She was stable for discharge on post op day #3. baby in NICU. . DISCHARGE MEDICATIONS: Please see below. ALLERGIES: Please see below. PHYSICAL EXAMINATION ON DISCHARGE: VITAL SIGNS: Please see below. GENERAL: NAD HEENT: NCAT CARDIOVASCULAR EXAMINATION: RRR RESPIRATORY EXAMINATION: CTA ABDOMINAL EXAMINATION: NT EXTREMITIES: NT LABORATORY DATA: Please see below. PROGNOSIS: good ACTIVITY: As tolerated. DIET: reg DISCHARGE PLAN: home DISCHARGE INSTRUCTIONS: 1. d/c today. instructions reviewed 2. Labetalol TID 3. fu office 1 week. DISCHARGE CONDITION: Stable. TIME SPENT ON DISCHARGE: Greater than 10 minutes. Vital Signs/I&Os Vital Signs Date Time Temp Pulse Resp B/P (MAP) Pulse Ox O2 Delivery O2 Flow Rate FiO2 02/13/21 08:07 80 140/99 02/13/21 00:03 98.0 16 98 Room Air Laboratory Data Labs 24H Laboratory Tests 2 02/13/21 07:03: Nucleated Red Blood Cells % (auto) 0.0 CBC/BMP Laboratory Tests 02/13/21 07:03 Microbiology Microbiology 02/08/21 Group B Streptococcus Screen (MARIE) - Final, Complete Discharge Medications Scheduled Ibuprofen (Ibuprofen) 800 Mg Tablet, 800 MG PO Q8H Labetalol HCl (Labetalol HCl) 200 Mg Tablet, 200 MG PO BID Labetalol HCl (Labetalol HCl) 200 Mg Tablet, 200 MG PO TID No115/Iron/Folic Acid ( 19 Chewable Tablet) 1 Each Tab.chew, 1 TAB PO DAILY, (Reported) Allergies Coded Allergies: amoxicillin (Verified Allergy, Intermediate, 11/27/20) hives, swelling VICKIE JAIN MD Feb 13, 2021 10:16
[2021-02-13] MEDS ORDERED: OXYC1TAB23 PO (11:59)
== END 2021-02-13 13:21 | disposition home or self-care (01) | DRG 540 ==
LOC: M LDO 15:15 → M LDI 20:54 → M OBS 02-10 03:30
PROVIDERS: ADMIT Obstetrics & Gynecology; ATTEND Obstetrics & Gynecology
PROC: 3E0P7GC Introduction of Other Therapeutic Substance into Female Reproductive, Via Natural or Artificial Opening (ICD-10-PCS; 2021-02-08)
PROC: 10D00Z1 Extraction of Products of Conception, Low, Open Approach (ICD-10-PCS; principal; 2021-02-10 00:45)
DX: O11.4 Pre-existing hypertension with pre-eclampsia, complicating childbirth (principal); O76 Abnormality in fetal heart rate and rhythm complicating labor and delivery; Z3A.34 34 weeks gestation of pregnancy; Z37.0 Single live birth; O10.02 Pre-existing essential hypertension complicating childbirth

== ENCOUNTER → 2021-02-08 | Outpatient (REF) | payer OTHER | LOC: M SFHCWAGY 14:56 | PROVIDERS: ATTEND Advanced Practice Midwife | DX: O10.919 Unspecified pre-existing hypertension complicating pregnancy, unspecified trimester (principal) ==

== ENCOUNTER → 2021-02-08 | Outpatient (CLI) | payer OTHER ==
--- NOTE | 2021-02-08 15:44 | REP ---
INDICATION: BPP/CORD DOPPLERS. COMPARISON: None. TECHNIQUE: Limited OB ultrasound for biophysical profile FINDINGS: Multiple ultrasonographic images of the gravid uterus shows a single living intrauterine gestation in the cephalic presentation. Doppler interrogation of the heart shows a heart rate of 144 beats per minute. The placenta is anterior and not low lying. Secondary to the low position of the head an accurate cervical length measurement could not be obtained. The subjective amniotic fluid volume is within normal limits. The calculated amniotic fluid index is 9.9 within expected range 8.0 to 24.8. Doppler interrogation of the umbilical artery shows an A\B ratio of 2.55. This is within the normal range. biophysical profile score is 2 for breathing, 2 for movement, 2 for tone, and 2 for amniotic fluid volume giving a sum total of 8/8. IMPRESSION: Limited Ob ultrasound with biophysical profile as described above. <Electronically signed by Frank Anderson > 02/08/21 [id number]
== END ==
LOC: M WHC 10:25
PROVIDERS: ATTEND Advanced Practice Midwife
DX: Z36.4 Encounter for antenatal screening for fetal growth retardation (principal); O36.5920 Maternal care for other known or suspected poor fetal growth, second trimester, not applicable or unspecified; Z3A.00 Weeks of gestation of pregnancy not specified

== ENCOUNTER → 2022-06-12 | Outpatient (REF) | payer OTHER ==
[~2022-06-12] MED LIST changes: -LABE200T32 PO; +LABE200T5 PO; +LABE20TAB PO; +OXYC1TAB23 PO
[2022-06-12 19:43] LABS: BASO % 0.4 % (0.0-1.0); EOS # 0.3 10^3/uL (0.0-0.5); EOS % 4.1 % (0.0-3.0); HEMATOCRIT 41.3 % (36.0-47.0); HEMOGLOBIN 11.8 g/dl (12.0-15.5); LYMPH # 2.5 10^3/uL (1.5-5.0); LYMPH % 31.7 % (24.0-44.0); MEAN CORPUSCULAR HEMOGLOBIN 22.8 pg (27.0-33.0); MEAN CORPUSCULAR HGB CONC 28.6 g/dl (32.0-36.5); MEAN CORPUSCULAR VOLUME 79.7 fl (80.0-96.0); MONO # 0.4 10^3/uL (0.0-0.8); MONO % 5.2 % (2.0-8.0); NEUTROPHILS # 4.5 10^3/uL (1.5-8.5); NEUTROPHILS % 57.8 % (36.0-66.0); PLATELET COUNT, AUTOMATED 329 10^3/uL (150-450); RED BLOOD COUNT 5.18 10^6/uL (4.00-5.40); WHITE BLOOD COUNT 7.9 10^3/uL (4.0-10.0)
[2022-06-12 20:13] LABS: ALBUMIN 3.6 G/DL (3.2-5.2); ALT/SGPT 17 U/L (7.0-40); BILIRUBIN,TOTAL 0.2 MG/DL (0.3-1.2); BLOOD UREA NITROGEN 12 MG/DL (9-23); CALCIUM LEVEL 9.4 MG/DL (8.5-10.1); CARBON DIOXIDE LEVEL 27 MMOL/L (20-31); CHLORIDE LEVEL 101 MMOL/L (98-107); CHOLESTEROL LEVEL 159 MG/DL (<200); CHOLESTEROL RISK RATIO 3.71 (<5); CREATININE FOR GFR 0.62 MG/DL (0.55-1.30); FERRITIN 21.6 NG/ML (7.3-270.7); FOLLICLE STIMULATING HORMONE 5.1 mIU/ML; GLOMERULAR FILTRATION RATE > 60.0 (>60); GLUCOSE, FASTING 116 MG/DL (60-100); HCG, SERUM QUANTITATIVE 2.59999 MIU/ML (<4.2); HDL CHOLESTEROL 42.8 MG/DL (>40); IRON (FE) 42 UG/DL (50-170); LDL CHOLESTEROL 84.2 MG/DL (<100); LUTEINIZING HORMONE 1.7 mIU/ML; NON-HDL-C 116 MG/DL; POTASSIUM SERUM 4.2 MMOL/L (3.5-5.1); SODIUM LEVEL 138 MMOL/L (136-145); TESTOSTERONE 25 NG/DL (14-76); THYROID STIMULATING HORMONE 1.125 uIU/ML (0.55-4.78); TOTAL IRON BINDING CAPACITY 351 UG/DL (250-425); TOTAL PROTEIN 6.7 G/DL (5.7-8.2); TRIGLYCERIDES LEVEL 160 MG/DL (<150)
[2022-06-12 20:55] LABS: TOTAL 25(OH) VITAMIN D 22.7 NG/ML (20.0-100.0)
[2022-06-12 21:23] LABS: HEMOGLOBIN A1c 5.6 % (4.0-6.0)
== END ==
LOC: M LAB REF 17:25
PROVIDERS: ATTEND Nurse Practitioner Family
DX: N92.6 Irregular menstruation, unspecified (principal); Z13.228 Encounter for screening for other metabolic disorders

== ENCOUNTER → 2023-07-23 | Outpatient (REF) | payer OTHER ==
[2023-07-23 12:49] LABS: BASO % 0.2 % (0.0-1.0); EOS # 0.3 10^3/uL (0.0-0.5); EOS % 3.9 % (0.0-3.0); HEMATOCRIT 41.3 % (36.0-47.0); HEMOGLOBIN 12.2 g/dl (12.0-15.5); LYMPH # 2.4 10^3/uL (1.5-5.0); LYMPH % 27.5 % (24.0-44.0); MEAN CORPUSCULAR HEMOGLOBIN 23.7 pg (27.0-33.0); MEAN CORPUSCULAR HGB CONC 29.5 g/dl (32.0-36.5); MEAN CORPUSCULAR VOLUME 80.2 fl (80.0-96.0); MONO # 0.5 10^3/uL (0.0-0.8); MONO % 5.2 % (2.0-8.0); NEUTROPHILS # 5.5 10^3/uL (1.5-8.5); NEUTROPHILS % 62.4 % (36.0-66.0); PLATELET COUNT, AUTOMATED 352 10^3/uL (150-450); RED BLOOD COUNT 5.15 10^6/uL (4.00-5.40); WHITE BLOOD COUNT 8.8 10^3/uL (4.0-10.0)
[2023-07-23 13:00] LABS: ALBUMIN 3.6 G/DL (3.2-5.2); ALKALINE PHOSPHATASE 126 U/L (46-116); ALT/SGPT 24 U/L (7.0-40); AST/SGOT 14 U/L (<34); BILIRUBIN,TOTAL 0.2 MG/DL (0.3-1.2); BLOOD UREA NITROGEN 9 MG/DL (9-23); CALCIUM LEVEL 8.8 MG/DL (8.5-10.1); CARBON DIOXIDE LEVEL 28 MMOL/L (20-31); CHLORIDE LEVEL 103 MMOL/L (98-107); CHOLESTEROL LEVEL 165 MG/DL (<200); CHOLESTEROL RISK RATIO 3.79 (<5); CREATININE FOR GFR 0.66 MG/DL (0.55-1.30); GLOMERULAR FILTRATION RATE > 60.0 (>60); GLUCOSE, FASTING 92 MG/DL (60-100); HDL CHOLESTEROL 43.5 MG/DL (>40); LDL CHOLESTEROL 106.5 MG/DL (<100); NON-HDL-C 121.5 MG/DL; POTASSIUM SERUM 4.6 MMOL/L (3.5-5.1); SODIUM LEVEL 138 MMOL/L (136-145); THYROID STIMULATING HORMONE 2.476 uIU/ML (0.55-4.78); TOTAL 25(OH) VITAMIN D 19.6 NG/ML (20.0-100.0); TOTAL PROTEIN 6.7 G/DL (5.7-8.2); TRIGLYCERIDES LEVEL 75 MG/DL (<150)
[2023-07-23 13:07] LABS: HEMOGLOBIN A1c 5.9 % (4.0-6.0)
== END ==
LOC: M LAB REF 12:18
PROVIDERS: ATTEND Nurse Practitioner Family
DX: E66.9 Obesity, unspecified (principal); E55.9 Vitamin D deficiency, unspecified; R53.83 Other fatigue; Z11.9 Encounter for screening for infectious and parasitic diseases, unspecified

== ENCOUNTER → 2023-08-19 | Outpatient (REF) | payer OTHER | LOC: M SFHCDERM 18:06 | PROVIDERS: ATTEND Physician Assistant | DX: D23.61 Other benign neoplasm of skin of right upper limb, including shoulder (principal) ==

== ENCOUNTER 2023-08-25 16:06 | Emergency (ER) | payer OTHER ==
[~2023-08-25] VITALS: Ht 160 cm; Wt 129.1 kg
[2023-08-25] MEDS ORDERED: VITA200032 (16:30)
[2023-08-25] MEDS ORDERED: ALBU8.5H (16:30)
[2023-08-25] MEDS ORDERED: SERT50TA29 (16:30)
[2023-08-25] MEDS ORDERED: MONT10TA97 (16:30)
[2023-08-25 20:22] LABS: APPEARANCE, URINE CLEAR (CLEAR); BACTERIA, URINE AUTO NEGATIVE (NEGATIVE); BILIRUBIN, URINE AUTO NEGATIVE (NEGATIVE); BLOOD, URINE BLOOD 2+ (NEGATIVE); COLOR, URINE YELLOW (YELLOW); GLUCOSE, URINE (UA) AUTO NEGATIVE (NEGATIVE); KETONE, URINE AUTO NEGATIVE (NEGATIVE); LEUKOCYTE ESTERASE, URINE AUTO NEGATIVE (NEGATIVE); NITRITE, URINE AUTO NEGATIVE (NEGATIVE); PROTEIN, URINE AUTO NEGATIVE (NEGATIVE); RBC, URINE AUTO 1 /HPF (0-3); SPECIFIC GRAVITY URINE AUTO 1.028 (1.002-1.035); SQUAMOUS EPITHELIAL CELL UR AU 0 /HPF (0-6); UROBILINOGEN, URINE AUTO 0.2 mg/dL (0.0-2.0); WBC, URINE AUTO 1 /HPF (0-3)
[2023-08-25 20:29] LABS: BASO % 0.3 % (0.0-1.0); EOS # 0.2 10^3/uL (0.0-0.5); EOS % 1.7 % (0.0-3.0); HEMATOCRIT 39.6 % (36.0-47.0); HEMOGLOBIN 12.1 g/dl (12.0-15.5); LYMPH # 3.2 10^3/uL (1.5-5.0); LYMPH % 27.4 % (24.0-44.0); MEAN CORPUSCULAR HEMOGLOBIN 24.3 pg (27.0-33.0); MEAN CORPUSCULAR HGB CONC 30.6 g/dl (32.0-36.5); MEAN CORPUSCULAR VOLUME 79.7 fl (80.0-96.0); MONO # 0.7 10^3/uL (0.0-0.8); MONO % 5.8 % (2.0-8.0); NEUTROPHILS # 7.5 10^3/uL (1.5-8.5); NEUTROPHILS % 64.2 % (36.0-66.0); PLATELET COUNT, AUTOMATED 361 10^3/uL (150-450); RED BLOOD COUNT 4.97 10^6/uL (4.00-5.40); WHITE BLOOD COUNT 11.7 10^3/uL (4.0-10.0)
[2023-08-25 21:03] LABS: HCG, SERUM QUALITATIVE NEGATIVE (NEGATIVE)
[2023-08-25 23:45] VITALS: BP 128/79; TEMP 98.2; O2SAT 99
== END 2023-08-25 23:48 | disposition home or self-care (01) ==
LOC: M ED 16:06
DX: N93.9 Abnormal uterine and vaginal bleeding, unspecified (principal); F32.A Depression, unspecified; J45.909 Unspecified asthma, uncomplicated; Z88.1 Allergy status to other antibiotic agents; Z79.899 Other long term (current) drug therapy; Z79.51 Long term (current) use of inhaled steroids; Z79.1 Long term (current) use of non-steroidal anti-inflammatories (NSAID)

== ENCOUNTER 2024-03-18 16:10 | Emergency (ER) | payer OTHER ==
[~2024-03-18] VITALS: Ht 160 cm; Wt 135.6 kg
[~2024-03-18 16:10] MED LIST changes: +ALBU8.5H; +MONT10TA97; +SERT50TA29; +VITA200032
[2024-03-18 18:46] LABS: BASO # 0.1 10^3/uL (0.0-0.2); BASO % 0.5 % (0.0-1.0); EOS # 0.2 10^3/uL (0.0-0.5); EOS % 1.8 % (0.0-3.0); HEMATOCRIT 41.9 % (36.0-47.0); HEMOGLOBIN 12.5 g/dl (12.0-15.5); LYMPH # 3.2 10^3/uL (1.5-5.0); LYMPH % 31.6 % (24.0-44.0); MEAN CORPUSCULAR HEMOGLOBIN 23.1 pg (27.0-33.0); MEAN CORPUSCULAR HGB CONC 29.8 g/dl (32.0-36.5); MEAN CORPUSCULAR VOLUME 77.4 fl (80.0-96.0); MONO # 0.5 10^3/uL (0.0-0.8); MONO % 5.4 % (2.0-8.0); NEUTROPHILS % 59.6 % (36.0-66.0); RED BLOOD COUNT 5.41 10^6/uL (4.00-5.40); WHITE BLOOD COUNT 10.1 10^3/uL (4.0-10.0)
[2024-03-18 19:00] LABS: LIPASE 30 U/L (12-53)
[2024-03-18 19:02] LABS: ALBUMIN 4.1 G/DL (3.2-5.2); ALKALINE PHOSPHATASE 129 U/L (46-116); ALT/SGPT 29 U/L (7.0-40); AST/SGOT 17 U/L (<34); BILIRUBIN,DIRECT < 0.1 MG/DL (<0.4); BILIRUBIN,TOTAL 0.2 MG/DL (0.3-1.2); TOTAL PROTEIN 8.2 G/DL (5.7-8.2)
[2024-03-18] MEDS: KETOROLAC 30 MG/ML 1ML VIAL IV ONE (19:12)
[2024-03-18] MEDS: ONDANSETRON 4MG 2ML VIAL IV ONE (19:13)
[2024-03-18] MEDS ORDERED: ISOVUE-370 76% 100ML VIAL As Ordered ONE (19:20)
[2024-03-18 19:25] LABS: HCG, SERUM QUALITATIVE NEGATIVE (NEGATIVE)
[2024-03-18] MEDS ORDERED: MIRA3350 PO (23:52)
[2024-03-18] MEDS ORDERED: MM S100C PO (23:52)
[2024-03-18 23:58] VITALS: BP 146/83; TEMP 97.9; O2SAT 98
== END 2024-03-19 00:02 | disposition home or self-care (01) ==
LOC: M ED 16:10
DX: K59.00 Constipation, unspecified (principal); N20.0 Calculus of kidney; Z88.1 Allergy status to other antibiotic agents
CPT/HCPCS: 74177; 80047; 80076; 81001; 83690; 84703; 85025; 96374; 96375; 99284; J1885; J2405; Q9967

== ENCOUNTER 2024-03-25 21:42 | Inpatient (IN) | payer OTHER, MEDICAID ==
[~2024-03-25] VITALS: Ht 160 cm; Wt 138.1 kg
[~2024-03-25 21:42] MED LIST changes: +MIRA3350 PO; +MM S100C PO; -SERT50TA29; +SERT50TA29 PO
[2024-03-25 22:39] LABS: BASO % 0.3 % (0.0-1.0); EOS % 0.3 % (0.0-3.0); HEMATOCRIT 37.7 % (36.0-47.0); HEMOGLOBIN 11.2 g/dl (12.0-15.5); LYMPH # 1.6 10^3/uL (1.5-5.0); LYMPH % 11.9 % (24.0-44.0); MEAN CORPUSCULAR HEMOGLOBIN 22.8 pg (27.0-33.0); MEAN CORPUSCULAR HGB CONC 29.7 g/dl (32.0-36.5); MEAN CORPUSCULAR VOLUME 76.8 fl (80.0-96.0); MONO # 0.6 10^3/uL (0.0-0.8); MONO % 4.3 % (2.0-8.0); NEUTROPHILS % 82.6 % (36.0-66.0); PLATELET COUNT, AUTOMATED 326 10^3/uL (150-450); RED BLOOD COUNT 4.91 10^6/uL (4.00-5.40); WHITE BLOOD COUNT 13.4 10^3/uL (4.0-10.0)
[2024-03-25 23:07] LABS: BLOOD UREA NITROGEN 17 MG/DL (9-23); CALCIUM LEVEL 9.2 MG/DL (8.5-10.1); CARBON DIOXIDE LEVEL 27 MMOL/L (20-31); CHLORIDE LEVEL 106 MMOL/L (98-107); CREATININE FOR GFR 1.09 MG/DL (0.55-1.30); GLOMERULAR FILTRATION RATE > 60.0 (>60); GLUCOSE, FASTING 133 MG/DL (60-100); POTASSIUM SERUM 4.6 MMOL/L (3.5-5.1); SODIUM LEVEL 139 MMOL/L (136-145)
[2024-03-25 23:27] LABS: HCG, SERUM QUALITATIVE NEGATIVE (NEGATIVE)
[2024-03-25] MEDS: NS 1,000 ML IV ONE (23:37)
[2024-03-25] MEDS: KETOROLAC 30 MG/ML 1ML VIAL IV ONE (23:37)
[2024-03-25] MEDS: ONDANSETRON 4MG 2ML VIAL IV ONE (23:37)
[2024-03-26] MEDS: MORPHINE 2 MG/ML 1ML VIAL IV ONE ×2 (00:30→00:52)
[2024-03-26] MEDS: TAMSULOSIN 0.4 MG CAP PO ONE (00:52)
[2024-03-26] MEDS ORDERED: HYDROMORPHONE HCL 0.5 MG/ 0.5 ML SYRINGE IV PRN (02:20)
[2024-03-26] MEDS ORDERED: ACETAMINOPHEN TAB 650MG DOSE (2X325MG) PO PRN (02:20)
[2024-03-26] MEDS ORDERED: MOM 30ML SUSPENSION UDC PO PRN (02:20)
[2024-03-26] MEDS: NS 1,000 ML IV SCH ×2 (02:20→02:31)
[2024-03-26] MEDS ORDERED: ONDANSETRON 4MG 2ML VIAL IV PRN (02:20)
[2024-03-26] MEDS ORDERED: MAALOX 30 ML SUSP *UDC PO PRN (02:20)
[2024-03-26] MEDS: HYDROMORPHONE HCL 0.5 MG/ 0.5 ML SYRINGE IV PRN ×2 (02:31→14:36)
[2024-03-26 04:35] LABS: ALBUMIN 3.3 G/DL (3.2-5.2); ALKALINE PHOSPHATASE 97 U/L (46-116); ALT/SGPT 21 U/L (7.0-40); AST/SGOT 12 U/L (<34); BILIRUBIN,TOTAL 0.2 MG/DL (0.3-1.2); BLOOD UREA NITROGEN 18 MG/DL (9-23); CALCIUM LEVEL 8.4 MG/DL (8.5-10.1); CARBON DIOXIDE LEVEL 27 MMOL/L (20-31); CHLORIDE LEVEL 108 MMOL/L (98-107); CREATININE FOR GFR 1.05 MG/DL (0.55-1.30); GLOMERULAR FILTRATION RATE > 60.0 (>60); GLUCOSE, FASTING 114 MG/DL (60-100); MAGNESIUM LEVEL 1.6 MG/DL (1.8-2.4); POTASSIUM SERUM 4.5 MMOL/L (3.5-5.1); SODIUM LEVEL 139 MMOL/L (136-145); TOTAL PROTEIN 6.5 G/DL (5.7-8.2)
[2024-03-26 04:44] VITALS: BP 116/61; TEMP 97.2; O2SAT 96
[2024-03-26] MEDS: KETOROLAC 30 MG/ML 1ML VIAL IV PRN (05:46)
[2024-03-26] MEDS: MAG SULF 1GM/100ML (MAG RUN) 1 GM in IV 1 EA IV ONE ×2 (05:51→08:53)
[2024-03-26] MEDS ORDERED: ALBU8.5H INH (08:47)
[2024-03-26] MEDS ORDERED: MONT10TA97 PO (08:47)
[2024-03-26] MEDS ORDERED: HOME MED LIST COMPLETE! XX SCH (08:50)
[2024-03-26] MEDS: TAMSULOSIN 0.4 MG CAP PO SCH (08:53)
[2024-03-26] MEDS: DOCUSATE SODIUM 100MG CAPSULE PO SCH (08:54)
[2024-03-26 12:00] VITALS: BP 115/60; TEMP 97.3; O2SAT 98
[2024-03-26 13:39] LABS: BASO % 0.3 % (0.0-1.0); EOS # 0.1 10^3/uL (0.0-0.5); EOS % 0.8 % (0.0-3.0); HEMATOCRIT 35.6 % (36.0-47.0); HEMOGLOBIN 10.5 g/dl (12.0-15.5); LYMPH # 2.4 10^3/uL (1.5-5.0); LYMPH % 26.1 % (24.0-44.0); MEAN CORPUSCULAR HEMOGLOBIN 23.1 pg (27.0-33.0); MEAN CORPUSCULAR HGB CONC 29.5 g/dl (32.0-36.5); MEAN CORPUSCULAR VOLUME 78.4 fl (80.0-96.0); MONO # 0.7 10^3/uL (0.0-0.8); MONO % 7.9 % (2.0-8.0); NEUTROPHILS # 5.9 10^3/uL (1.5-8.5); NEUTROPHILS % 64.2 % (36.0-66.0); PLATELET COUNT, AUTOMATED 276 10^3/uL (150-450); RED BLOOD COUNT 4.54 10^6/uL (4.00-5.40); WHITE BLOOD COUNT 9.2 10^3/uL (4.0-10.0)
[2024-03-26] MEDS: MONTELUKAST 10 MG TAB PO SCH (15:33)
[2024-03-26] MEDS: SERTRALINE HCL 50 MG TAB PO SCH (15:33)
[2024-03-26] MEDS ORDERED: LIDOCAINE 2% 100MG/5ML SDV (FOR ANES.) As Ordered ONE (16:44)
[2024-03-26] MEDS ORDERED: propofoL 200 MG/20 ML VIAL As Ordered ONE (16:46)
[2024-03-26] MEDS ORDERED: ACETAMINOPHEN 1000MG 100ML IV BAG As Ordered ONE (16:47)
[2024-03-26] MEDS: ceFAZolin 2 GM/D5W 50 ML IV BAG As Ordered ONE (17:00)
[2024-03-26] MEDS: ISOVUE-300 61% 100ML VIAL As Ordered ONE (17:02)
[2024-03-26] MEDS ORDERED: MIDAZOLAM INJ 2MG/2ML VIAL As Ordered ONE (17:09)
[2024-03-26] MEDS ORDERED: fentaNYL 100 MCG/2 ML INJECTION As Ordered ONE (17:09)
[2024-03-26] MEDS ORDERED: KETOROLAC 60MG 2ML VIAL As Ordered ONE (17:13)
[2024-03-26] MEDS ORDERED: ONDANSETRON 4MG 2ML VIAL As Ordered ONE (17:13)
[2024-03-26 18:20] VITALS: BP 134/79; TEMP 97.6; O2SAT 97
[2024-03-26] MEDS ORDERED: OXYC1TAB23 PO (19:03)
[2024-03-26] MEDS ORDERED: MIRA3350 PO (19:03)
[2024-03-26] MEDS ORDERED: IBUP-1114 PO (19:03)
== END 2024-03-26 20:15 | disposition home or self-care (01) | DRG 465 ==
LOC: M ED 21:42 → M ED INP 03-26 02:19 → M MS5PR 03-26 04:43
PROVIDERS: ADMIT Family Medicine; ATTEND Internal Medicine
PROC: 0T768DZ Dilation of Right Ureter with Intraluminal Device, Via Natural or Artificial Opening Endoscopic (ICD-10-PCS; principal; 2024-03-26 16:00)
DX: N13.1 Hydronephrosis with ureteral stricture, not elsewhere classified (principal); Z68.43 Body mass index [BMI] 50.0-59.9, adult; E83.42 Hypomagnesemia; R16.2 Hepatomegaly with splenomegaly, not elsewhere classified; E66.01 Morbid (severe) obesity due to excess calories; K76.0 Fatty (change of) liver, not elsewhere classified; Z79.899 Other long term (current) drug therapy; Z88.0 Allergy status to penicillin; R59.0 Localized enlarged lymph nodes; F32.A Depression, unspecified

== ENCOUNTER 2024-04-15 12:47 | Inpatient (IN) | payer MEDICAID, OTHER ==
[~2024-04-15] VITALS: Ht 160 cm; Wt 132.8 kg
[~2024-04-15 12:47] MED LIST changes: +ALBU8.5H INH; +IBUP-1114 PO; +MONT10TA97 PO
[2024-04-15] MEDS: NS 1,000 ML IV ONE ×2 (13:40→17:50)
[2024-04-15] MEDS: IBUPROFEN 600MG TAB PO ONE (13:40)
[2024-04-15] MEDS: ONDANSETRON 4MG 2ML VIAL IV ONE (13:40)
[2024-04-15 13:54] LABS: BASO % 0.1 % (0.0-1.0); HEMOGLOBIN 11.1 g/dl (12.0-15.5); LYMPH # 0.7 10^3/uL (1.5-5.0); LYMPH % 4.9 % (24.0-44.0); MEAN CORPUSCULAR HEMOGLOBIN 23.2 pg (27.0-33.0); MEAN CORPUSCULAR VOLUME 77.2 fl (80.0-96.0); MONO # 1.2 10^3/uL (0.0-0.8); MONO % 8.6 % (2.0-8.0); NEUTROPHILS # 11.8 10^3/uL (1.5-8.5); NEUTROPHILS % 85.9 % (36.0-66.0); PLATELET COUNT, AUTOMATED 275 10^3/uL (150-450); RED BLOOD COUNT 4.79 10^6/uL (4.00-5.40); WHITE BLOOD COUNT 13.8 10^3/uL (4.0-10.0)
[2024-04-15 14:34] LABS: BLOOD UREA NITROGEN 10 MG/DL (9-23); CALCIUM LEVEL 8.4 MG/DL (8.5-10.1); CARBON DIOXIDE LEVEL 25 MMOL/L (20-31); CHLORIDE LEVEL 102 MMOL/L (98-107); CREATININE FOR GFR 0.82 MG/DL (0.55-1.30); GLOMERULAR FILTRATION RATE > 60.0 (>60); GLUCOSE, FASTING 106 MG/DL (60-100); HCG, SERUM QUANTITATIVE < 2.6 MIU/ML (<4.2); POTASSIUM SERUM 4.1 MMOL/L (3.5-5.1); SODIUM LEVEL 134 MMOL/L (136-145)
[2024-04-15] MEDS: ACETAMINOPHEN 325 MG TAB PO ONE (16:20)
[2024-04-15] MEDS: cefTRIAXone SOD 2 GM in D5W MINI-BAG PLUS 50 ML IV ONE (16:30)
[2024-04-15] MEDS: MIDODRINE 5 MG TAB PO ONE (18:05)
[2024-04-15] MEDS ORDERED: HOME MED LIST COMPLETE! XX SCH (18:10)
[2024-04-15] MEDS ORDERED: BISACODYL 10MG SUPP PR PRN (18:15)
[2024-04-15] MEDS ORDERED: MIRALAX *UNIT DOSE* 17GM PACKET PO PRN (18:15)
[2024-04-15] MEDS ORDERED: MOM 30ML SUSPENSION UDC PO PRN (18:15)
[2024-04-15] MEDS ORDERED: NALOXONE INJ 0.4MG/1ML VIAL IV PRN (18:15)
[2024-04-15] MEDS ORDERED: SENOKOT S TAB PO PRN (18:15)
[2024-04-15] MEDS: KETOROLAC 30 MG/ML 1ML VIAL IV ONE (19:15)
[2024-04-15] MEDS ORDERED: ISOVUE-370 76% 100ML VIAL As Ordered ONE (19:25)
[2024-04-15 20:35] VITALS: BP 118/56; TEMP 101.4; O2SAT 97
[2024-04-15 21:34] VITALS: BP 119/65; TEMP 98.1; O2SAT 95
[2024-04-15] MEDS: NS 2,000 ML IV ONE (21:47)
[2024-04-15] MEDS: HEPARIN SOD (PORCINE) 5000UNITS/ML 1ML VIAL/SYRINGE SQ SCH (22:49)
[2024-04-15] MEDS: NS 1,000 ML IV SCH (22:50)
[2024-04-15] MEDS: ACETAMINOPHEN 500 MG TAB PO SCH (23:29)
[2024-04-16 03:43] VITALS: BP 115/65; TEMP 99.4; O2SAT 97
[2024-04-16 06:32] LABS: BASO % 0.1 % (0.0-1.0); EOS % 0.1 % (0.0-3.0); LYMPH # 1.4 10^3/uL (1.5-5.0); MEAN CORPUSCULAR VOLUME 76.7 fl (80.0-96.0); MONO # 1.9 10^3/uL (0.0-0.8); MONO % 12.2 % (2.0-8.0); NEUTROPHILS # 11.8 10^3/uL (1.5-8.5); NEUTROPHILS % 77.8 % (36.0-66.0); PLATELET COUNT, AUTOMATED 239 10^3/uL (150-450); RED BLOOD COUNT 3.95 10^6/uL (4.00-5.40); WHITE BLOOD COUNT 15.2 10^3/uL (4.0-10.0)
[2024-04-16 06:46] LABS: HEMATOCRIT 30.3 % (36.0-47.0); HEMOGLOBIN 9.1 g/dl (12.0-15.5)
[2024-04-16 06:51] LABS: BLOOD UREA NITROGEN 9 MG/DL (9-23); CALCIUM LEVEL 8.3 MG/DL (8.5-10.1); CARBON DIOXIDE LEVEL 24 MMOL/L (20-31); CHLORIDE LEVEL 107 MMOL/L (98-107); CREATININE FOR GFR 0.75 MG/DL (0.55-1.30); GLOMERULAR FILTRATION RATE > 60.0 (>60); GLUCOSE, FASTING 99 MG/DL (60-100); POTASSIUM SERUM 3.9 MMOL/L (3.5-5.1); SODIUM LEVEL 136 MMOL/L (136-145)
[2024-04-16 08:00] VITALS: BP 113/65; TEMP 97.3; O2SAT 96
[2024-04-16] MEDS: MONTELUKAST 10 MG TAB PO SCH (09:57)
[2024-04-16] MEDS: FUROSEMIDE 40MG/4ML VIAL IV ONE (09:57)
[2024-04-16] MEDS: SERTRALINE HCL 50 MG TAB PO SCH (09:57)
[2024-04-16] MEDS: cefTRIAXone SOD 1 GM in D5W MINI-BAG PLUS 50 ML IV SCH (09:58)
[2024-04-16] MEDS: PROMETHAZINE 25MG/ML 1ML VIAL IV PRN (11:32)
[2024-04-16] MEDS ORDERED: PIPERACILLIN/TAZOBACTAM SOD 4.5 GM in D5W MINI-BAG PLUS 50 ML IV SCH (11:55)
[2024-04-16] MEDS: MIDODRINE 5 MG TAB PO ONE (13:13)
[2024-04-16] MEDS: CEFEPIME HCL 2 GM in D5W MINI-BAG PLUS 50 ML IV SCH (13:25)
[2024-04-16] MEDS: VANCOMYCIN HCL 1,000 MG, VIAL MATE ADAPTER 1 EACH in D5W 250 ML IV ONE (14:29)
[2024-04-16] MEDS: VANCOMYCIN HCL 1,000 MG, VIAL MATE ADAPTER 1 EACH in D5W 250 ML IV SCH (17:04)
[2024-04-16] MEDS: oxyCODONE 5MG TAB PO PRN (20:06)
[2024-04-16 20:08] VITALS: BP 112/70; TEMP 98.6; O2SAT 97
[2024-04-17] MEDS: ONDANSETRON 4MG 2ML VIAL IV ONE (02:29)
[2024-04-17 04:00] VITALS: BP 114/66; TEMP 98.1; O2SAT 96
[2024-04-17 07:17] LABS: BASO % 0.2 % (0.0-1.0); EOS % 0.2 % (0.0-3.0); HEMATOCRIT 28.8 % (36.0-47.0); HEMOGLOBIN 8.5 g/dl (12.0-15.5); LYMPH # 1.4 10^3/uL (1.5-5.0); MEAN CORPUSCULAR HEMOGLOBIN 22.5 pg (27.0-33.0); MEAN CORPUSCULAR HGB CONC 29.5 g/dl (32.0-36.5); MEAN CORPUSCULAR VOLUME 76.4 fl (80.0-96.0); MONO % 9.6 % (2.0-8.0); NEUTROPHILS # 7.6 10^3/uL (1.5-8.5); NEUTROPHILS % 75.5 % (36.0-66.0); PLATELET COUNT, AUTOMATED 245 10^3/uL (150-450); RED BLOOD COUNT 3.77 10^6/uL (4.00-5.40)
[2024-04-17 07:32] LABS: VANCOMYCIN LEVEL TROUGH 7.7 UG/ML (10.0-20.0)
[2024-04-17 07:33] LABS: BLOOD UREA NITROGEN 11 MG/DL (9-23); CALCIUM LEVEL 8.4 MG/DL (8.5-10.1); CARBON DIOXIDE LEVEL 26 MMOL/L (20-31); CHLORIDE LEVEL 108 MMOL/L (98-107); CREATININE FOR GFR 0.71 MG/DL (0.55-1.30); GLOMERULAR FILTRATION RATE > 60.0 (>60); GLUCOSE, FASTING 101 MG/DL (60-100); POTASSIUM SERUM 3.6 MMOL/L (3.5-5.1); SODIUM LEVEL 137 MMOL/L (136-145)
[2024-04-17] MEDS: METOCLOPRAMIDE INJ 10MG/2ML VIAL IV ONE (08:33)
[2024-04-17] MEDS: FIORICET TAB PO ONE (08:33)
[2024-04-17] MEDS: NS 1,000 ML IV SCH (09:07)
[2024-04-17] MEDS: SUMAtriptan SUCCINATE 6MG/0.5ML VIAL SC ONE (09:07)
[2024-04-17] MEDS: VANCOMYCIN HCL 500 MG in D5W MINI-BAG PLUS 100 ML IV ONE (09:07)
[2024-04-17 12:00] VITALS: BP 116/64; TEMP 97.3; O2SAT 94
[2024-04-17] MEDS: VANCOMYCIN HCL 750 MG, VIAL MATE ADAPTER 1 EACH in D5W 250 ML IV SCH ×2 (15:26→17:26)
[2024-04-17] MEDS: HYALURONIDASE 15UNIT/ML 1ML SYRINGE (AMPHADASE) SC ONE (17:32)
[2024-04-17 19:40] VITALS: BP 141/69; TEMP 99.9; O2SAT 95
[2024-04-17 22:39] VITALS: TEMP 100.5
[2024-04-18] VITALS (11 sets, daily range): BP systolic 106–153; BP diastolic 57–88; TEMP 97.2–101.6; O2SAT 97–100
[2024-04-18] MEDS: IBUPROFEN 600MG TAB PO ONE (00:19)
[2024-04-18 06:24] LABS: BASO % 0.2 % (0.0-1.0); EOS # 0.1 10^3/uL (0.0-0.5); EOS % 1.8 % (0.0-3.0); HEMOGLOBIN 8.4 g/dl (12.0-15.5); LYMPH # 1.7 10^3/uL (1.5-5.0); MEAN CORPUSCULAR VOLUME 76.7 fl (80.0-96.0); MONO # 0.6 10^3/uL (0.0-0.8); MONO % 11.2 % (2.0-8.0); NEUTROPHILS # 3.1 10^3/uL (1.5-8.5); NEUTROPHILS % 55.3 % (36.0-66.0); PLATELET COUNT, AUTOMATED 238 10^3/uL (150-450); RED BLOOD COUNT 3.65 10^6/uL (4.00-5.40); WHITE BLOOD COUNT 5.6 10^3/uL (4.0-10.0)
[2024-04-18 06:32] LABS: BLOOD UREA NITROGEN 9 MG/DL (9-23); CALCIUM LEVEL 7.8 MG/DL (8.5-10.1); CARBON DIOXIDE LEVEL 26 MMOL/L (20-31); CHLORIDE LEVEL 107 MMOL/L (98-107); CREATININE FOR GFR 0.72 MG/DL (0.55-1.30); GLOMERULAR FILTRATION RATE > 60.0 (>60); GLUCOSE, FASTING 87 MG/DL (60-100); POTASSIUM SERUM 3.7 MMOL/L (3.5-5.1); SODIUM LEVEL 137 MMOL/L (136-145); VANCOMYCIN LEVEL TROUGH 18.9 UG/ML (10.0-20.0)
[2024-04-18] MEDS: VANCOMYCIN HCL 750 MG, VIAL MATE ADAPTER 1 EACH in D5W 250 ML IV SCH ×2 (09:53→11:43)
[2024-04-18] MEDS: ALPRAZolam 0.5 MG TAB PO ONE (11:42)
[2024-04-18] MEDS ORDERED: ENOXAPARIN 150MG/ML SYRINGE SC SCH (12:00)
[2024-04-18] MEDS ORDERED: ALPRAZolam 0.5 MG TAB PO PRN (15:00)
[2024-04-19 05:20] LABS: BASO % 0.3 % (0.0-1.0); EOS # 0.1 10^3/uL (0.0-0.5); EOS % 1.6 % (0.0-3.0); HEMATOCRIT 27.5 % (36.0-47.0); HEMOGLOBIN 8.2 g/dl (12.0-15.5); LYMPH # 1.8 10^3/uL (1.5-5.0); LYMPH % 28.6 % (24.0-44.0); MEAN CORPUSCULAR HEMOGLOBIN 22.5 pg (27.0-33.0); MEAN CORPUSCULAR HGB CONC 29.8 g/dl (32.0-36.5); MEAN CORPUSCULAR VOLUME 75.5 fl (80.0-96.0); MONO # 0.8 10^3/uL (0.0-0.8); NEUTROPHILS # 3.5 10^3/uL (1.5-8.5); NEUTROPHILS % 55.1 % (36.0-66.0); PLATELET COUNT, AUTOMATED 282 10^3/uL (150-450); RED BLOOD COUNT 3.64 10^6/uL (4.00-5.40); WHITE BLOOD COUNT 6.4 10^3/uL (4.0-10.0)
[2024-04-19 05:44] LABS: BLOOD UREA NITROGEN 6 MG/DL (9-23); CALCIUM LEVEL 7.8 MG/DL (8.5-10.1); CARBON DIOXIDE LEVEL 25 MMOL/L (20-31); CHLORIDE LEVEL 107 MMOL/L (98-107); CREATININE FOR GFR 0.65 MG/DL (0.55-1.30); GLOMERULAR FILTRATION RATE > 60.0 (>60); GLUCOSE, FASTING 97 MG/DL (60-100); POTASSIUM SERUM 3.4 MMOL/L (3.5-5.1); SODIUM LEVEL 138 MMOL/L (136-145)
[2024-04-19 07:55] VITALS: TEMP 97.7
[2024-04-19 08:00] VITALS: BP 147/82; TEMP 98.6; O2SAT 95
[2024-04-19 08:49] VITALS: BP 135/79; TEMP 97.7; O2SAT 95
[2024-04-19] MEDS: LevoFLOXacin 750 MG TABLET PO SCH (10:58)
[2024-04-19 12:06] VITALS: BP 156/100; TEMP 98.3; O2SAT 96
[2024-04-19] MEDS ORDERED: LEVO1TAB40 PO (16:04)
[2024-04-19] MEDS ORDERED: XANA0.5T PO (16:04)
[2024-04-19] MEDS: POTASSIUM CHLORIDE 10MEQ SR TABLET PO ONE (16:12)
[2024-04-19 16:13] VITALS: BP 147/84
[2024-04-19] MEDS: cloNIDine 0.1MG TABLET PO ONE (16:13)
[2024-04-19 16:19] VITALS: BP 147/84
== END 2024-04-19 18:16 | disposition home or self-care (01) | DRG 720 ==
LOC: M ED 12:47 → M ED INP 17:47 → M MSPAV 21:17
PROVIDERS: ADMIT General Practice; ATTEND General Practice
DX: A41.9 Sepsis, unspecified organism (principal); J18.9 Pneumonia, unspecified organism; R16.2 Hepatomegaly with splenomegaly, not elsewhere classified; E87.1 Hypo-osmolality and hyponatremia; I82.612 Acute embolism and thrombosis of superficial veins of left upper extremity; K76.0 Fatty (change of) liver, not elsewhere classified; E66.01 Morbid (severe) obesity due to excess calories; E83.42 Hypomagnesemia; E83.51 Hypocalcemia; E87.70 Fluid overload, unspecified; D62 Acute posthemorrhagic anemia; B96.1 Klebsiella pneumoniae [K. pneumoniae] as the cause of diseases classified elsewhere; F32.A Depression, unspecified; N99.89 Other postprocedural complications and disorders of genitourinary system; R59.0 Localized enlarged lymph nodes; N10 Acute pyelonephritis; I10 Essential (primary) hypertension; F41.9 Anxiety disorder, unspecified; D50.9 Iron deficiency anemia, unspecified; Z68.43 Body mass index [BMI] 50.0-59.9, adult; Z96.0 Presence of urogenital implants; Z79.899 Other long term (current) drug therapy; Z88.0 Allergy status to penicillin

== ENCOUNTER 2024-05-03 19:12 | Emergency (ER) | payer MEDICARE, OTHER ==
[~2024-05-03] VITALS: Ht 160 cm; Wt 130.0 kg
[~2024-05-03 19:12] MED LIST changes: +LEVO1TAB40 PO; +XANA0.5T PO
[2024-05-03 19:16] VITALS: BP 173/77; TEMP 98.2; O2SAT 97
[2024-05-03 21:28] LABS: BASO # 0.1 10^3/uL (0.0-0.2); BASO % 0.5 % (0.0-1.0); EOS # 0.1 10^3/uL (0.0-0.5); EOS % 0.7 % (0.0-3.0); HEMATOCRIT 35.2 % (36.0-47.0); HEMOGLOBIN 10.4 g/dl (12.0-15.5); LYMPH # 2.4 10^3/uL (1.5-5.0); LYMPH % 23.4 % (24.0-44.0); MEAN CORPUSCULAR HEMOGLOBIN 22.8 pg (27.0-33.0); MEAN CORPUSCULAR HGB CONC 29.5 g/dl (32.0-36.5); MONO # 0.6 10^3/uL (0.0-0.8); MONO % 5.9 % (2.0-8.0); NEUTROPHILS # 7.2 10^3/uL (1.5-8.5); NEUTROPHILS % 69.1 % (36.0-66.0); PLATELET COUNT, AUTOMATED 480 10^3/uL (150-450); RED BLOOD COUNT 4.57 10^6/uL (4.00-5.40); WHITE BLOOD COUNT 10.3 10^3/uL (4.0-10.0)
[2024-05-03 21:50] LABS: LIPASE 27 U/L (12-53)
[2024-05-03 22:05] LABS: ALBUMIN 3.8 G/DL (3.2-5.2); ALKALINE PHOSPHATASE 96 U/L (46-116); ALT/SGPT 22 U/L (7.0-40); AST/SGOT 11 U/L (<34); BILIRUBIN,DIRECT 0.1 MG/DL (<0.4); BILIRUBIN,TOTAL 0.3 MG/DL (0.3-1.2); BLOOD UREA NITROGEN 13 MG/DL (9-23); CALCIUM LEVEL 9.5 MG/DL (8.5-10.1); CARBON DIOXIDE LEVEL 28 MMOL/L (20-31); CHLORIDE LEVEL 104 MMOL/L (98-107); CREATININE FOR GFR 0.65 MG/DL (0.55-1.30); GLOMERULAR FILTRATION RATE > 60.0 (>60); GLUCOSE, FASTING 102 MG/DL (60-100); POTASSIUM SERUM 4.2 MMOL/L (3.5-5.1); SODIUM LEVEL 137 MMOL/L (136-145); TOTAL PROTEIN 7.3 G/DL (5.7-8.2)
[2024-05-03 22:19] LABS: HCG, SERUM QUALITATIVE NEGATIVE (NEGATIVE)
== END 2024-05-04 00:39 | disposition left against medical advice (07) ==
LOC: M ED 19:12
DX: Z53.21 Procedure and treatment not carried out due to patient leaving prior to being seen by health care provider (principal)

== ENCOUNTER 2024-05-12 13:16 | Day surgery (SDC) | payer OTHER ==
[~2024-05-12] VITALS: Ht 160 cm; Wt 130.6 kg
[~2024-05-12 13:16] MED LIST changes: +CEFD1CAP9 PO; +FERR220E10 PO
[2024-05-12] MEDS ORDERED: LR 1,000 ML IV SCH (14:10)
[2024-05-12] MEDS ORDERED: PYRI1TAB5 PO (14:21)
[2024-05-12] MEDS ORDERED: OXYB5TAB14 PO (14:21)
[2024-05-12] MEDS ORDERED: ceFAZolin SOD 3 GM in IV 1 EA IV ONE (14:35)
[2024-05-12] MEDS ORDERED: propofoL 200 MG/20 ML VIAL As Ordered ONE (14:47)
[2024-05-12] MEDS ORDERED: ACETAMINOPHEN 1000MG 100ML IV BAG As Ordered ONE (14:47)
[2024-05-12] MEDS ORDERED: LIDOCAINE 2% 100MG/5ML SDV (FOR ANES.) As Ordered ONE (14:47)
[2024-05-12] MEDS ORDERED: ONDANSETRON 4MG 2ML VIAL As Ordered ONE (14:47)
[2024-05-12] MEDS ORDERED: MIDAZOLAM INJ 2MG/2ML VIAL As Ordered ONE (14:48)
[2024-05-12] MEDS ORDERED: fentaNYL 100 MCG/2 ML INJECTION As Ordered ONE (14:48)
[2024-05-12] MEDS: ceFAZolin SOD 1 GM in D5W MINI-BAG PLUS 50 ML IV ONE (15:00)
[2024-05-12] MEDS: ceFAZolin SOD 2 GM in IV 1 EA IV ONE (15:00)
[2024-05-12] MEDS ORDERED: ROCURONIUM BROMIDE 50MG/5ML VIAL As Ordered ONE (15:04)
[2024-05-12] MEDS ORDERED: SUGAMMADEX SODIUM 500 MG/5 ML VIAL (BRIDION) As Ordered ONE (15:04)
[2024-05-12] MEDS ORDERED: fentaNYL 100 MCG/2 ML INJECTION IV PRN (15:35)
[2024-05-12] MEDS ORDERED: ONDANSETRON 4MG 2ML VIAL IV PRN (15:35)
[2024-05-12] MEDS ORDERED: MORPHINE 2 MG/ML 1ML VIAL IV PRN (15:35)
[2024-05-12] MEDS ORDERED: oxyCODONE 5MG TAB PO PRN (15:35)
[2024-05-12] MEDS: ISOVUE-300 61% 100ML VIAL As Ordered ONE (15:40)
[2024-05-12 16:20] VITALS: BP 143/85; TEMP 97.2; O2SAT 96
[2024-05-12] MEDS ORDERED: oxyBUTYnin 5 MG TAB PO PRN (18:00)
[2024-05-12] MEDS ORDERED: PERCOCET 5MG/325MG TAB PO PRN (18:00)
== END 2024-05-12 16:40 | disposition home or self-care (01) ==
LOC: M SDC 13:16
PROVIDERS: ATTEND Urology
DX: N20.1 Calculus of ureter (principal); Z68.43 Body mass index [BMI] 50.0-59.9, adult; Z88.0 Allergy status to penicillin; Z79.899 Other long term (current) drug therapy
CPT/HCPCS: 52332; 52352; 76000; 81025; 82365; C2617; J0131; J0690; J1100; J2250; J2405; J3010; Q9967

== ENCOUNTER 2024-09-11 04:06 | Emergency (ER) | payer MEDICAID, OTHER ==
[~2024-09-11] VITALS: Ht 160 cm; Wt 130.6 kg
[~2024-09-11 04:06] MED LIST changes: +OXYB5TAB14 PO; +PYRI1TAB5 PO
[2024-09-11 04:13] VITALS: BP 142/97; TEMP 97.4; O2SAT 99
== END 2024-09-11 07:29 | disposition left against medical advice (07) ==
LOC: M ED 04:06
DX: Z53.21 Procedure and treatment not carried out due to patient leaving prior to being seen by health care provider (principal)

== ENCOUNTER → 2025-06-27 | Outpatient (REF) | payer OTHER ==
[~2025-06-27] MED LIST changes: -LABE200T5 PO; +LABE200T86 PO
[2025-06-27 14:37] LABS: CHOLESTEROL LEVEL 142.0 MG/DL (<200); CHOLESTEROL RISK RATIO 3.49 (<5); IRON (FE) 17.0 UG/DL (50-170); LDL CHOLESTEROL 63.0 MG/DL (<100); NON-HDL-C 101.4 MG/DL; PERCENT SATURATION 4.3 % (13.2-45.0); TRIGLYCERIDES LEVEL 192.0 MG/DL (<150)
[2025-06-27 14:40] LABS: TOTAL 25(OH) VITAMIN D 23.0 NG/ML (20.0-100.0)
[2025-06-27 14:45] LABS: ESTIMATED AVERAGE GLUCOSE 114.0 MG/DL (60-110)
[2025-06-27 14:48] LABS: BASO # 0.0 10^3/uL (0.0-0.2); BASO % 0.5 % (0.0-1.0); EOS # 0.2 10^3/uL (0.0-0.5); EOS % 1.9 % (0.0-3.0); LYMPH # 1.9 10^3/uL (1.5-5.0); LYMPH % 22.5 % (24.0-44.0); MONO # 0.6 10^3/uL (0.0-0.8); MONO % 7.1 % (2.0-8.0); NEUTROPHILS # 5.8 10^3/uL (1.5-8.5); NEUTROPHILS % 66.7 % (36.0-66.0); PLATELET COUNT, AUTOMATED 540 10^3/uL (150-450)
== END ==
LOC: M LAB REF 14:08
PROVIDERS: ATTEND Nurse Practitioner Family
DX: E66.9 Obesity, unspecified (principal); D50.9 Iron deficiency anemia, unspecified; E55.9 Vitamin D deficiency, unspecified; Z68.43 Body mass index [BMI] 50.0-59.9, adult